=== PATIENT | male | born 1940 | race Caucasian/White ===

== ENCOUNTER 2017-09-22 18:27 | Inpatient (IN) | payer OTHER ==
[~2017-09-22] VITALS: Ht 175.3 cm; Wt 128.0 kg
[~2017-09-22 18:27] MED LIST: ATEN50 PO; Diovan320 MG PO; FINA5 PO; GLIP5 PO; NYST100TO TOP; Prozac20 MG PO
[2017-09-22 20:24] LABS: BASOPHILS ABSOLUTE AUTO 0.02 K/mm3 (0.00-0.23); BASOPHILS PERCENT AUTO 0 % (0-2); EOSINOPHILS ABSOLUTE AUTO 0.21 K/mm3 (0.00-0.68); EOSINOPHILS PERCENT AUTO 2 % (0-6); Hematocrit 42.1 % (37.0-53.0); Hemoglobin 14.1 g/dL (13.5-17.5); IMMATURE GRAN ABSOLUTE AUTO 0.03 K/mm3 (0.00-0.10); IMMATURE GRAN PERCENT AUTO 0 % (0-1); LYMPHOCYTES PERCENT AUTO 9 % (21-46); MONOCYTES PERCENT AUTO 6 % (4-13); Mean Corpuscular HGB 30.7 pg (26.0-34.0); Mean Corpuscular HGB Conc 33.5 g/dL (31.5-36.5); Mean Corpuscular Volume 92 fL (80-100); Mean Platelet Volume 11.3 fL (9.1-12.4); NEUTROPHILS ABSOLUTE AUTO 8.36 K/mm3 (1.96-9.15); NEUTROPHILS PERCENT AUTO 83 % (41-73); Platelet Count 154 K/mm3 (150-400); RDW Coefficient Variation 13.8 % (11.7-14.2); RDW Standard Deviation 45.5 fL (35.1-46.3); White Blood Cell Count 10.12 K/mm3 (4.00-11.30)
[2017-09-22 20:43] LABS: Albumin, Blood 3.4 g/dL (3.4-5.0); Albumin/Globulin Ratio 0.8 (0.8-1.8); Bilirubin, Total 0.4 mg/dL (0.1-1.0); Bun/Creatinine Ratio 22.2 (12.0-20.0); Creatinine, Blood 1.62 mg/dL (0.60-1.20); Globulin, Blood 4.5 g/dL (2.2-4.0); Potassium, Blood 4.1 mmol/L (3.5-5.5); Total Protein, Blood 7.9 g/dL (6.4-8.2); Troponin I 0.024 ng/mL (0.000-0.040)
[2017-09-22] MEDS ORDERED: ASPI81CH PO (20:43)
[2017-09-22] MEDS ORDERED: AMLO10 PO (20:43)
[2017-09-22] MEDS ORDERED: ATEN50 PO (20:43)
[2017-09-22] MEDS ORDERED: BUME2 PO (20:43)
[2017-09-22] MEDS ORDERED: DONE10 PO (20:44)
[2017-09-22] MEDS ORDERED: CETI5 PO (20:44)
[2017-09-22] MEDS ORDERED: FINA5 PO (20:44)
[2017-09-22] MEDS ORDERED: Hair, Skin & N1 EACH PO (20:45)
[2017-09-22] MEDS ORDERED: FISH OIL 1,0001 EAC1 PO (20:45)
[2017-09-22] MEDS ORDERED: POTCHL10ER PO (20:45)
[2017-09-22] MEDS ORDERED: NYST100000 PO (20:45)
[2017-09-22] MEDS ORDERED: Diovan160 MG PO (20:46)
[2017-09-22] MEDS ORDERED: Prozac40 MG PO (20:46)
[2017-09-22] MEDS ORDERED: TAMS.4ER PO (20:46)
[2017-09-22] MEDS ORDERED: GLIP5 PO (20:47)
[2017-09-22 23:20] LABS: International Normalized Ratio 1.07; Prothrombin Time Results 11.2 Sec (9.7-11.5)
[2017-09-22] MEDS ORDERED: NAMZARIC 28 MG1 EACH PO (23:24)
[2017-09-23 05:56] LABS: BASOPHILS ABSOLUTE AUTO 0.03 K/mm3 (0.00-0.23); BASOPHILS PERCENT AUTO 0 % (0-2); EOSINOPHILS PERCENT AUTO 3 % (0-6); Hematocrit 39.2 % (37.0-53.0); Hemoglobin 12.8 g/dL (13.5-17.5); IMMATURE GRAN ABSOLUTE AUTO 0.04 K/mm3 (0.00-0.10); IMMATURE GRAN PERCENT AUTO 1 % (0-1); LYMPHOCYTES ABSOLUTE AUTO 1.58 K/mm3 (0.84-5.20); LYMPHOCYTES PERCENT AUTO 18 % (21-46); MONOCYTES ABSOLUTE AUTO 0.66 K/mm3 (0.16-1.47); MONOCYTES PERCENT AUTO 8 % (4-13); Mean Corpuscular HGB 30.3 pg (26.0-34.0); Mean Corpuscular HGB Conc 32.7 g/dL (31.5-36.5); Mean Corpuscular Volume 93 fL (80-100); NEUTROPHILS ABSOLUTE AUTO 6.09 K/mm3 (1.96-9.15); NEUTROPHILS PERCENT AUTO 70 % (41-73); Platelet Count 143 K/mm3 (150-400); RDW Coefficient Variation 13.8 % (11.7-14.2); RDW Standard Deviation 46.9 fL (35.1-46.3); Red Blood Cell Count 4.22 M/mm3 (4.30-5.90)
[2017-09-23 06:29] LABS: Albumin/Globulin Ratio 0.7 (0.8-1.8); Bilirubin, Total 0.4 mg/dL (0.1-1.0); Bun/Creatinine Ratio 19.4 (12.0-20.0); Calcium, Blood 8.5 mg/dL (8.5-10.1); Creatinine, Blood 1.65 mg/dL (0.60-1.20); Globulin, Blood 4.1 g/dL (2.2-4.0); Potassium, Blood 3.7 mmol/L (3.5-5.5); Total Protein, Blood 7.1 g/dL (6.4-8.2)
[2017-09-23] MEDS ORDERED: NYSTRITC TOP (12:08)
[2017-09-23] MEDS ORDERED: GLIP2.5ER PO (12:30)
[2017-09-24 05:07] LABS: BASOPHILS ABSOLUTE AUTO 0.05 K/mm3 (0.00-0.23); BASOPHILS PERCENT AUTO 1 % (0-2); EOSINOPHILS ABSOLUTE AUTO 0.31 K/mm3 (0.00-0.68); EOSINOPHILS PERCENT AUTO 4 % (0-6); Hematocrit 39.4 % (37.0-53.0); Hemoglobin 12.9 g/dL (13.5-17.5); IMMATURE GRAN ABSOLUTE AUTO 0.02 K/mm3 (0.00-0.10); IMMATURE GRAN PERCENT AUTO 0 % (0-1); LYMPHOCYTES ABSOLUTE AUTO 1.34 K/mm3 (0.84-5.20); LYMPHOCYTES PERCENT AUTO 17 % (21-46); MONOCYTES ABSOLUTE AUTO 0.63 K/mm3 (0.16-1.47); MONOCYTES PERCENT AUTO 8 % (4-13); Mean Corpuscular HGB 30.4 pg (26.0-34.0); Mean Corpuscular HGB Conc 32.7 g/dL (31.5-36.5); Mean Corpuscular Volume 93 fL (80-100); Mean Platelet Volume 11.8 fL (9.1-12.4); NEUTROPHILS ABSOLUTE AUTO 5.45 K/mm3 (1.96-9.15); NEUTROPHILS PERCENT AUTO 70 % (41-73); Platelet Count 145 K/mm3 (150-400); RDW Coefficient Variation 13.7 % (11.7-14.2); Red Blood Cell Count 4.25 M/mm3 (4.30-5.90)
[2017-09-24 06:04] LABS: Bun/Creatinine Ratio 22.7 (12.0-20.0); Calcium, Blood 8.5 mg/dL (8.5-10.1); Creatinine, Blood 1.63 mg/dL (0.60-1.20); Potassium, Blood 3.8 mmol/L (3.5-5.5)
[2017-09-25 03:56] LABS: International Normalized Ratio 1.12; Prothrombin Time Results 11.7 Sec (9.7-11.5)
[2017-09-26 03:32] LABS: International Normalized Ratio 1.14; Prothrombin Time Results 11.9 Sec (9.7-11.5)
[2017-09-26] MEDS ORDERED: XARELTO15 MG PO (11:33)
[2018-07-29] MEDS ORDERED: ELIQUIS5 M1 PO (16:40)
[2018-07-29] MEDS ORDERED: ALLO100 PO (16:41)
[2018-07-29] MEDS ORDERED: METO50ER PO (16:42)
[2018-07-29] MEDS ORDERED: LOSA50 PO (16:42)
[2018-07-29] MEDS ORDERED: ADULT TUSS100 MG/5 M PO (22:20)
[2018-07-29] MEDS ORDERED: QUET25 PO (22:26)
[2018-07-29] MEDS ORDERED: LEVFLO500 PO (22:31)
[2018-07-29] MEDS ORDERED: ZYRTEC10 M2 PO (22:31)
[2018-07-30] MEDS ORDERED: LEVFLO500 PO (02:32)
== END 2017-09-26 13:30 | disposition home or self-care (01) | DRG 175 ==
LOC: ER 18:27 → ICUW 22:18 → PCU 22:18 → ICUW 22:58 → PCU 09-23 16:00
PROVIDERS: Emergency Medicine; Internal Medicine
DX: I26.99 Other pulmonary embolism without acute cor pulmonale (principal); J96.01 Acute respiratory failure with hypoxia; I82.532 Chronic embolism and thrombosis of left popliteal vein; G47.30 Sleep apnea, unspecified; E11.22 Type 2 diabetes mellitus with diabetic chronic kidney disease; I12.9 Hypertensive chronic kidney disease with stage 1 through stage 4 chronic kidney disease, or unspecified chronic kidney disease; N18.9 Chronic kidney disease, unspecified; F03.90 Unspecified dementia, unspecified severity, without behavioral disturbance, psychotic disturbance, mood disturbance, and anxiety; Z79.82 Long term (current) use of aspirin; Z79.899 Other long term (current) drug therapy; Z88.0 Allergy status to penicillin; Z88.8 Allergy status to other drugs, medicaments and biological substances; Z91.040 Latex allergy status
CPT/HCPCS: 36415; 71046; 78582; 80048; 80053; 82947; 83880; 84484; 85025; 85610; 85730; 93005; 93010; 93970; 94660; 94762; 96374; 99285; A9540; A9558; J1644; J1650; J1940; J7060

== ENCOUNTER → 2018-11-12 | Outpatient (CLI) | payer OTHER ==
[~2018-11-12] MED LIST changes: +ADULT TUSS100 MG/5 M PO; +ALLO100 PO; +AMLO10 PO; +ASPI81CH PO; +BUME2 PO; +CETI5 PO; +DONE10 PO; +Diovan160 MG PO; +ELIQUIS5 M1 PO; +FISH OIL 1,0001 EAC1 PO; +GLIP2.5ER PO; +Hair, Skin & N1 EACH PO; +LEVFLO500 PO; +LOSA50 PO; +METO50ER PO; +NAMZARIC 28 MG1 EACH PO; +NYST100000 PO; +NYSTRITC TOP; +POTCHL10ER PO; +Prozac40 MG PO; +QUET25 PO; +TAMS.4ER PO; +XARELTO15 MG PO; +ZYRTEC10 M2 PO
== END ==
LOC: LAB 17:14 → LAB SHORT 17:14
DX: N39.41 Urge incontinence (principal)
CPT/HCPCS: 87086

== ENCOUNTER 2019-11-25 13:04 | Inpatient (IN) | payer OTHER ==
[~2019-11-25] VITALS: Ht 175.3 cm; Wt 99.8 kg
[~2019-11-25 13:04] MED LIST changes: -BUME2 PO; +Bumetanide2 MG PO; -FISH OIL 1,0001 EAC1 PO; +FLUO10 PO; +Fish Oil Conc1000 MG PO; -Prozac40 MG PO
[2019-11-25] MEDS ORDERED: Bactrim Ds Tab1 EACH PO (13:19)
[2019-11-25 13:51] LABS: BASOPHILS ABSOLUTE AUTO 0.06 K/mm3 (0.00-0.23); BASOPHILS PERCENT AUTO 1 % (0-2); EOSINOPHILS ABSOLUTE AUTO 0.23 K/mm3 (0.00-0.68); EOSINOPHILS PERCENT AUTO 3 % (0-6); Hematocrit 47.8 % (37.0-53.0); Hemoglobin 15.3 g/dL (13.5-17.5); IMMATURE GRAN ABSOLUTE AUTO 0.03 K/mm3 (0.00-0.10); IMMATURE GRAN PERCENT AUTO 0 % (0-1); LYMPHOCYTES ABSOLUTE AUTO 1.37 K/mm3 (0.84-5.20); LYMPHOCYTES PERCENT AUTO 17 % (21-46); MONOCYTES ABSOLUTE AUTO 0.38 K/mm3 (0.16-1.47); MONOCYTES PERCENT AUTO 5 % (4-13); Mean Corpuscular HGB 30.4 pg (26.0-34.0); Mean Corpuscular Volume 95 fL (80-100); Mean Platelet Volume 11.8 fL (9.1-12.4); NEUTROPHILS ABSOLUTE AUTO 6.12 K/mm3 (1.96-9.15); NEUTROPHILS PERCENT AUTO 75 % (41-73); Platelet Count 182 K/mm3 (150-400); RDW Coefficient Variation 14.6 % (11.7-14.2); RDW Standard Deviation 51.1 fL (35.1-46.3); Red Blood Cell Count 5.04 M/mm3 (4.30-5.90); White Blood Cell Count 8.19 K/mm3 (4.00-11.30)
[2019-11-25 14:07] LABS: International Normalized Ratio 1.05; Prothrombin Time Results 11.2 Sec (9.7-11.5)
[2019-11-25 14:29] LABS: Albumin, Blood 3.6 g/dL (3.4-5.0); Albumin/Globulin Ratio 0.8 (0.8-1.8); Bilirubin, Total 0.3 mg/dL (0.1-1.0); Bun/Creatinine Ratio 11.1 (12.0-20.0); Calcium, Blood 9.4 mg/dL (8.5-10.1); Creatinine, Blood 2.16 mg/dL (0.60-1.20); Globulin, Blood 4.5 g/dL (2.2-4.0); Potassium, Blood 3.9 mmol/L (3.5-5.5); Total Protein, Blood 8.1 g/dL (6.4-8.2)
[2019-11-25 16:21] LABS: Source, Urine Clean Catch
[2019-11-25 16:29] LABS: Bilirubin, Urine Neg (Neg); Blood, Urine 5+ (Neg); Glucose Qualitative, Urine Neg (Neg); Ketones, Urine Neg (Neg); Leukocyte Esterase, Urine 3+ (Neg); Nitrite, Urine Neg (Neg); Protein, Urine 2+ (Neg); Urobilinogen, Urine NORM (Normal)
[2019-11-25 16:41] LABS: Appearance, Urine Hazy (Clear); Color, Urine Yellow (P-Yellow)
[2019-11-25 16:42] LABS: White Blood Cells, Urine TNTC /hpf (0-5)
[2019-11-25 16:43] LABS: Bacteria Few /hpf; Squamous Epithelial Cells Few /hpf (Few)
[2019-11-25] MEDS ORDERED: RIVASTIGMINE3 MG PO (18:35)
--- NOTE | 2019-11-26 03:42 | NUR ---
SARAH CATH D/C'D. PT KATIE WELL. BRIEF IN PLACE D/T INCONTINENCE.
--- NOTE | 2019-11-26 05:13 | NUR ---
SHIFT SUMMARY: VSS. AFEB. A/O TO SELF ONLY. PT UNABLE TO STATE WHERE HE IS OR WHY HIS IS IN THE HOSPITAL. UNABLE TO GIVE BIRTHDAY CORRECTLY. INCREASED CONFUSION DURING THE NIGHT. REMAINS PLEASANT, CHUCKLING AND SMILING OFTEN. URINE YELLOW W/LARGE AMTS OF WHITE SEDIMENT. DENIES DYSURIA. DENIES ABD OR FLANK PAIN. IV FLUIDS CONTINUOUSLY ORDERED. PT DANGLING LEGS OUT OF BED AT ONE POINT DUE TO ATTMEPT TO GET OOB. WHEN ASKED, PT UNABLE TO EXPLAIN WHERE HE WAS GOING. AGAIN, VERY CONFUSED ABOUT SITUATION, BUT PLEASANT AND REDIRECTABLE. ASSISTED BACK IN BED. CALL BUTTON EXPLAINED AND PLACED IN REACH, BED LOW, BED ALARM REMAINS ON. WILL CONT TO MONITOR.
[2019-11-26 05:15] LABS: BASOPHILS ABSOLUTE AUTO 0.06 K/mm3 (0.00-0.23); BASOPHILS PERCENT AUTO 1 % (0-2); EOSINOPHILS ABSOLUTE AUTO 0.29 K/mm3 (0.00-0.68); EOSINOPHILS PERCENT AUTO 4 % (0-6); Hematocrit 43.3 % (37.0-53.0); IMMATURE GRAN ABSOLUTE AUTO 0.03 K/mm3 (0.00-0.10); IMMATURE GRAN PERCENT AUTO 0 % (0-1); LYMPHOCYTES ABSOLUTE AUTO 1.48 K/mm3 (0.84-5.20); LYMPHOCYTES PERCENT AUTO 18 % (21-46); MONOCYTES ABSOLUTE AUTO 0.55 K/mm3 (0.16-1.47); MONOCYTES PERCENT AUTO 7 % (4-13); Mean Corpuscular HGB 30.5 pg (26.0-34.0); Mean Corpuscular HGB Conc 32.3 g/dL (31.5-36.5); Mean Corpuscular Volume 94 fL (80-100); Mean Platelet Volume 11.5 fL (9.1-12.4); NEUTROPHILS PERCENT AUTO 71 % (41-73); Platelet Count 158 K/mm3 (150-400); RDW Coefficient Variation 14.6 % (11.7-14.2); Red Blood Cell Count 4.59 M/mm3 (4.30-5.90); White Blood Cell Count 8.21 K/mm3 (4.00-11.30)
[2019-11-26 05:35] LABS: Bun/Creatinine Ratio 12.4 (12.0-20.0); Calcium, Blood 8.8 mg/dL (8.5-10.1); Creatinine, Blood 2.09 mg/dL (0.60-1.20); Magnesium, Blood 2.3 mg/dL (1.6-2.4); Potassium, Blood 4.1 mmol/L (3.5-5.5)
--- NOTE | 2019-11-26 17:01 | NUR ---
PATIENT IS ALERT. ORIENTED ONLY TO SELF. AT THIS TIME HE IS VERY CONFUSED AND TRYING TO GET OUT OF THE RECLINER. HE IS EASILY REDIRECTABLE. DOES NOT SHOW ANY AGRESSION. HE IS A 2PA WITH FWW AND GAIT BELT. INCONTINENT OF URINE, ATTENDS IN PLACE. WILL CONTINUE TO MONITOR.
--- NOTE | 2019-11-27 04:02 | NUR ---
SHIFT SUMMARY ADMITTED FOR ACUTE METABOLIC ENCEPHALOPATHY. DNR CODE. PT IS CONFUSED BUT ABLE CALL OUT. CPAP @ NIGHT, ADA DIET, CONTINUOUS PULSE OX, BED ALARM IS ON, ACHS GLUCOSE MONITORING. HE COMES FROM [facility] WHERE HE ALREADY HAS A CAREGIVER IN PLACE. 2 PERSON ASSIST W/FWW AND GAITBELT. HE IS INCONTINENT. HX: ABDULAZIZ, DEMENTIA, CARA'S ESOPHAGUS, PE, CHF, CKD3, GOUT, FALLS AT HOME.
[2019-11-27 06:24] LABS: Bun/Creatinine Ratio 13.7 (12.0-20.0); Creatinine, Blood 2.05 mg/dL (0.60-1.20); Potassium, Blood 4.2 mmol/L (3.5-5.5)
--- NOTE | 2019-11-27 14:01 | NUR ---
DISCHARGE SUMMARY PT A/O X 1-2. UNABLE TO EFFECTIVELY MAKE NEEDS KNOWN. PT STABLE ON FEET BUT CONFUSED. IV REMOVED AND CAREGIVER PROVIDED ALL D/C PAPERWORK AND INSTRUCTIONS. PATIENT WHEELED OUT OF HOSPITAL BY NODE JS DEVELOPER AND CAREGIVER.
== END 2019-11-27 13:44 | disposition home or self-care (01) | DRG 682 ==
LOC: ER 13:04 → ERHOLD 18:01 → MEDS 18:01 → ENPENDDIS 11-27 11:00 → MEDS 11-27 13:44
PROVIDERS: Hospitalist; Physician Assistant; ADMIT Internal Medicine
DX: N17.9 Acute kidney failure, unspecified (principal); G93.41 Metabolic encephalopathy; N18.3 Chronic kidney disease, stage 3 (moderate); F03.90 Unspecified dementia, unspecified severity, without behavioral disturbance, psychotic disturbance, mood disturbance, and anxiety; M10.9 Gout, unspecified; G47.33 Obstructive sleep apnea (adult) (pediatric); I12.9 Hypertensive chronic kidney disease with stage 1 through stage 4 chronic kidney disease, or unspecified chronic kidney disease; I25.10 Atherosclerotic heart disease of native coronary artery without angina pectoris; K22.70 Barrett's esophagus without dysplasia; J45.909 Unspecified asthma, uncomplicated; N40.0 Benign prostatic hyperplasia without lower urinary tract symptoms; E66.01 Morbid (severe) obesity due to excess calories; Z68.32 Body mass index [BMI] 32.0-32.9, adult; Z66 Do not resuscitate; E86.0 Dehydration
CPT/HCPCS: 36415; 51702; 70450; 80048; 80053; 81001; 82947; 83735; 84484; 85025; 85610; 87086; 93005; 93010; 94660; 94762; 96365-59; 97116; 97162; 97166; 97535; 99285-25; A9270-GY; J0696; J7030; J7050

== ENCOUNTER → 2020-01-13 | Outpatient (CLI) | payer OTHER ==
[~2020-01-13] MED LIST changes: +Bactrim Ds Tab1 EACH PO; +RIVASTIGMINE3 MG PO
== END | disposition home or self-care (01) ==
LOC: LAB 17:17 → LAB SHORT 17:17
DX: R35.0 Frequency of micturition (principal)
CPT/HCPCS: 87086

== ENCOUNTER 2020-10-13 14:04 | Observation (INO) | payer OTHER ==
[~2020-10-13] VITALS: Ht 182.9 cm; Wt 104.3 kg
[~2020-10-13 14:04] MED LIST changes: +FISH OIL 1,2001 EAC7 PO; -Fish Oil Conc1000 MG PO
[2020-10-13 14:58] LABS: BASOPHILS ABSOLUTE AUTO 0.06 K/mm3 (0.00-0.23); BASOPHILS PERCENT AUTO 1 % (0-2); EOSINOPHILS ABSOLUTE AUTO 0.32 K/mm3 (0.00-0.68); EOSINOPHILS PERCENT AUTO 4 % (0-6); Hematocrit 48.4 % (37.0-53.0); Hemoglobin 15.2 g/dL (13.5-17.5); IMMATURE GRAN ABSOLUTE AUTO 0.04 K/mm3 (0.00-0.10); IMMATURE GRAN PERCENT AUTO 0 % (0-1); LYMPHOCYTES ABSOLUTE AUTO 1.01 K/mm3 (0.84-5.20); LYMPHOCYTES PERCENT AUTO 11 % (21-46); MONOCYTES ABSOLUTE AUTO 0.38 K/mm3 (0.16-1.47); MONOCYTES PERCENT AUTO 4 % (4-13); Mean Corpuscular HGB 29.6 pg (26.0-34.0); Mean Corpuscular HGB Conc 31.4 g/dL (31.5-36.5); Mean Corpuscular Volume 94 fL (80-100); Mean Platelet Volume 12.6 fL (9.1-12.4); NEUTROPHILS ABSOLUTE AUTO 7.27 K/mm3 (1.96-9.15); NEUTROPHILS PERCENT AUTO 80 % (41-73); Platelet Count 130 K/mm3 (150-400); RDW Coefficient Variation 14.7 % (11.7-14.2); RDW Standard Deviation 51.4 fL (35.1-46.3); Red Blood Cell Count 5.14 M/mm3 (4.30-5.90); White Blood Cell Count 9.08 K/mm3 (4.00-11.30)
[2020-10-13 15:16] LABS: Albumin/Globulin Ratio 0.7 (0.8-1.8); Bilirubin, Total 0.6 mg/dL (0.1-1.0); Bun/Creatinine Ratio 15.3 (12.0-20.0); Calcium, Blood 8.8 mg/dL (8.5-10.1); Creatinine, Blood 1.77 mg/dL (0.60-1.20); Globulin, Blood 4.4 g/dL (2.2-4.0); Potassium, Blood 3.6 mmol/L (3.5-5.5); Total Protein, Blood 7.4 g/dL (6.4-8.2); Troponin I 0.059 ng/mL (0.000-0.040)
[2020-10-13 17:29] LABS: Source, Urine Clean Catch
[2020-10-13 17:39] LABS: Appearance, Urine Clear (Clear); Bilirubin, Urine Neg (Neg); Blood, Urine Neg (Neg); Color, Urine Yellow (P-Yellow); Glucose Qualitative, Urine Neg (Neg); Ketones, Urine 1+ (Neg); Leukocyte Esterase, Urine Neg (Neg); Nitrite, Urine Neg (Neg); Protein, Urine 2+ (Neg); Urobilinogen, Urine NORM (Normal)
[2020-10-13 17:46] LABS: Red Blood Cells, Urine 0-2 /hpf (0-2); White Blood Cells, Urine Not Seen /hpf (0-5)
[2020-10-13 17:47] LABS: Amorphous Light (0-Heavy); Bacteria Not Seen /hpf; Squamous Epithelial Cells Few /hpf (Few)
[2020-10-13] MEDS ORDERED: ELIQUIS2.5 MG PO (17:47)
[2020-10-13 17:51] LABS: U Amphetamine Screen Not Detected; U Barbituate Screen Not Detected; U Benzodiazapine Screen Not Detected; U Buprenorphine Screen Not Detected; U Cannabinoids Screen Not Detected; U Cocaine Screen Not Detected; U Methadone Screen Not Detected; U Methamphetamine Screen Not Detected; U Opiates Screen Not Detected; U Oxycodone Screen Not Detected; U Phencyclidine Screen Not Detected; U Propoxyphene Screen Not Detected
[2020-10-13] MEDS ORDERED: LACT PO (17:55)
[2020-10-13] MEDS ORDERED: LOSA50 PO (17:58)
[2020-10-13] MEDS ORDERED: NAMZARIC PO (18:01)
--- NOTE | 2020-10-13 21:41 | NUR ---
ADMIT NOTE RECEIVED HANDOFF FROM ER NURSE RICHARD. PT BROUGHT TO FLOOR VIA GURNEY. TELEMETRY MONITORING BEGAN ORDERED. PT ORIENTED TO UNIT. CALL BUTTON WITHIN REACH.
--- NOTE | 2020-10-14 04:20 | NUR ---
SHIFT SUMMARY ADMITTED FOR ELEVATED TROPONIN. DNR CODE. PLAN IS TO TREND TROPONINS. PT HAS HX FOR MULTIPLE FALLS. HE IS CONFUSED. HIGH FALL RISK. TELEMETRY: AFIB @ 82 BPM. HE IS VERY [place]. A SARAH IS IN PLACE AND PATENT. CALL BUTTON IS WITHIN REACH. BED ALARM IS ON.
--- NOTE | 2020-10-14 14:33 | NUR ---
PT HAD SMALL RUN OF V TACH 11 BEATS @ 1150. ANESTHETIST ALSO NOTICE A LOT OF PVCs WITH BIGEMINY AND TRIGEMINY. DR CHU WAS NOTIFIED AND HE ADDED MEDICATION TO EMAR.
--- NOTE | 2020-10-14 17:56 | NUR ---
PT AOX1 AND CONFUSED PT SEEMS TO BE COOPERATIVE. PT DOES NOT CALL WITH CALL LIGHT AND HAS BEEN IN BED MOST OF THE DAY. PT WORKED WITH PHYSICAL THERAPY, BUT WAS HARD TO REDIRECT PER PHYSICAL THERAPIST. PT DENIES ANY PAIN AND HAS CALL LIGHT WITHIN REACH. WILL CONTINUE TO MONITOR.
--- NOTE | 2020-10-15 04:16 | NUR ---
FILL MANAGER SUMMARY PT A/O X0. PLEASANTLY CONFUSED. SLEPT MOST OF THE NIGHT. DENIES PAIN. VSS. NO ACUTE CHANGES. TELE SR AT 66 PER GUN REPAIR CLERK THIS MORNING. BED ALARM IN PLACE, CALL LIGHT WITHIN REACH.
--- NOTE | 2020-10-15 17:03 | NUR ---
PT AOX1 AND COOPERATIVE OF CARE. PT HAS BEEN VERY TIRED TODAY, BUT WILL WAKE UP PT DID NOT WANT TO EAT BREAKFAST OR LUNCH. PT HAD SARAH REMOVED AROUND 1415 TODAY WILL CONTINUE TO MONITOR FOR VOIDS. PT RESTING AT THIS TIME WAS ABLE TO GET PT TO DRINK SOME ENSURE. WILL CONTINUE TO ENCOURGE DRINKING AND EATING. CALL LIGHT IS WITHIN REACH AND BED ALARM IN PLACE. WILL CONTINUE TO MONITOR.
--- NOTE | 2020-10-16 05:30 | NUR ---
10/16/20 0525 PT AWAKE AND CHEERFUL. DENIES ANY S/S OR DISCOMFORT. TAKING JUICE WELL. VOIDED TWICE. HEART MONITOR AND VITALS STABLE. UNEVENTFUL NIGHT.
[2020-10-16] MEDS ORDERED: CARV6.25 PO (11:19)
--- NOTE | 2020-10-16 13:59 | NUR ---
PT DISCHARGED TODAY WITH CAREGIVER TRANSPORT HOME WITH PERSONAL WHEELCHAIR. PT IS AT BASELINE AND HAS BEEN DOING WELL TODAY. DR ANTONIO IS VERY FAMILLIAR WITH PT AND HIS HX. PT HAD ALL PERSONAL BELONING COLLECTED AND PAPERWORK AND EDUCATIONAL MATERIAL REVIEWED WITH CAREGIVER. CAREGIVER AND PT'S DAUGHTER ARE WORKING ON PLAN FOR MORE CARE OR SUPERVISION AT NIGHT. PT WAS TAKEN OUT IN WHEELCHAIR BY CAREGIVER NO DISTRESS NOTED.
[2020-10-19 07:10] LABS: TRICYCLIC ANTIDEP Negative ng/mL (Cutoff=100)
[2021-01-22] MEDS ORDERED: CEFPODOXIME PR100 MG PO (21:24)
== END 2020-10-16 13:32 | disposition home or self-care (01) ==
LOC: ER 14:04 → MEDS 14:05 → ENPENDDIS 10-16 11:02 → MEDS 10-16 13:32
PROVIDERS: Emergency Medicine; ADMIT Internal Medicine
DX: R77.8 Other specified abnormalities of plasma proteins (principal); G93.41 Metabolic encephalopathy; F03.90 Unspecified dementia, unspecified severity, without behavioral disturbance, psychotic disturbance, mood disturbance, and anxiety; E78.5 Hyperlipidemia, unspecified; J44.9 Chronic obstructive pulmonary disease, unspecified; K21.9 Gastro-esophageal reflux disease without esophagitis; N40.0 Benign prostatic hyperplasia without lower urinary tract symptoms; M19.90 Unspecified osteoarthritis, unspecified site; I26.99 Other pulmonary embolism without acute cor pulmonale; E11.22 Type 2 diabetes mellitus with diabetic chronic kidney disease; I12.9 Hypertensive chronic kidney disease with stage 1 through stage 4 chronic kidney disease, or unspecified chronic kidney disease; N18.30 Chronic kidney disease, stage 3 unspecified; E66.01 Morbid (severe) obesity due to excess calories; I82.509 Chronic embolism and thrombosis of unspecified deep veins of unspecified lower extremity; R29.6 Repeated falls; Z79.01 Long term (current) use of anticoagulants; Z66 Do not resuscitate; Z87.891 Personal history of nicotine dependence; Z88.0 Allergy status to penicillin; Z88.8 Allergy status to other drugs, medicaments and biological substances
CPT/HCPCS: 36415; 51702; 70450; 71045; 72125; 80053; 81001; 83735; 83880; 84484; 85025; 93005; 93010; 97162; 97530; 99285-25; A9270; G0378; G0480; G0481; J7120

== ENCOUNTER 2020-11-26 13:07 | Emergency (ER) | payer OTHER ==
[~2020-11-26] VITALS: Ht 175.3 cm; Wt 136.1 kg
[~2020-11-26 13:07] MED LIST changes: +CARV6.25 PO; +ELIQUIS2.5 MG PO; +LACT PO; +NAMZARIC PO
[2020-11-26 16:17] LABS: BASOPHILS ABSOLUTE AUTO 0.05 K/mm3 (0.00-0.23); BASOPHILS PERCENT AUTO 0 % (0-2); EOSINOPHILS PERCENT AUTO 0 % (0-6); Hematocrit 51.7 % (37.0-53.0); Hemoglobin 16.8 g/dL (13.5-17.5); IMMATURE GRAN ABSOLUTE AUTO 0.15 K/mm3 (0.00-0.10); IMMATURE GRAN PERCENT AUTO 1 % (0-1); LYMPHOCYTES ABSOLUTE AUTO 1.01 K/mm3 (0.84-5.20); LYMPHOCYTES PERCENT AUTO 5 % (21-46); MONOCYTES ABSOLUTE AUTO 1.13 K/mm3 (0.16-1.47); MONOCYTES PERCENT AUTO 6 % (4-13); Mean Corpuscular HGB 30.1 pg (26.0-34.0); Mean Corpuscular HGB Conc 32.5 g/dL (31.5-36.5); Mean Corpuscular Volume 93 fL (80-100); Mean Platelet Volume 11.7 fL (9.1-12.4); NEUTROPHILS ABSOLUTE AUTO 17.78 K/mm3 (1.96-9.15); NEUTROPHILS PERCENT AUTO 89 % (41-73); Platelet Count 207 K/mm3 (150-400); RDW Coefficient Variation 14.2 % (11.7-14.2); RDW Standard Deviation 48.9 fL (35.1-46.3); Red Blood Cell Count 5.58 M/mm3 (4.30-5.90); White Blood Cell Count 20.12 K/mm3 (4.00-11.30)
[2020-11-26 16:30] LABS: Albumin, Blood 3.2 g/dL (3.4-5.0); Albumin/Globulin Ratio 0.6 (0.8-1.8); Bilirubin, Total 1.1 mg/dL (0.1-1.0); Bun/Creatinine Ratio 11.8 (12.0-20.0); Calcium, Blood 9.2 mg/dL (8.5-10.1); Creatinine, Blood 1.69 mg/dL (0.60-1.20); Globulin, Blood 5.4 g/dL (2.2-4.0); Potassium, Blood 4.5 mmol/L (3.5-5.5); Total Protein, Blood 8.6 g/dL (6.4-8.2)
[2020-11-26 17:32] LABS: Source, Urine Voided
[2020-11-26 17:41] LABS: Appearance, Urine Hazy (Clear); Bilirubin, Urine Neg (Neg); Blood, Urine 2+ (Neg); Color, Urine Yellow (P-Yellow); Glucose Qualitative, Urine Neg (Neg); Ketones, Urine Neg (Neg); Leukocyte Esterase, Urine 3+ (Neg); Nitrite, Urine Neg (Neg); Protein, Urine 3+ (Neg); Urobilinogen, Urine NORM (Normal); pH, Urine 6.5 (5.0-8.0)
[2020-11-26 17:54] LABS: Bacteria Few /hpf; Squamous Epithelial Cells Few /hpf (Few)
[2020-11-26 17:56] LABS: Hyaline Casts 0-2 /lpf (0-2); White Blood Cells, Urine 25-50 /hpf (0-5); Yeast/Fungi Urine Mod /hpf
[2020-11-26] MEDS ORDERED: CEFP200 PO (18:46)
[2021-01-22] MEDS ORDERED: CEFPODOXIME PR100 MG PO (21:24)
== END 2020-11-26 19:53 | disposition home or self-care (01) ==
LOC: ER 13:07
PROVIDERS: Emergency Medicine
DX: A41.9 Sepsis, unspecified organism (principal); N39.0 Urinary tract infection, site not specified; J18.9 Pneumonia, unspecified organism; G93.40 Encephalopathy, unspecified; R09.02 Hypoxemia; Z88.0 Allergy status to penicillin; Z88.8 Allergy status to other drugs, medicaments and biological substances; Z79.01 Long term (current) use of anticoagulants; Z79.899 Other long term (current) drug therapy
CPT/HCPCS: 36415; 51701; 80053; 81001; 85025; 87086; 96365-59; 99283-25; J0696

== ENCOUNTER 2020-11-26 21:13 | Inpatient (IN) | payer OTHER ==
[~2020-11-26] VITALS: Ht 188 cm; Wt 131.2 kg
[~2020-11-26 21:13] MED LIST changes: +CEFP200 PO
[2020-11-26 22:56] LABS: Influenza A, PCR NEGATIVE (NEGATIVE); Influenza B, PCR NEGATIVE (NEGATIVE); Resp Syncytial Virus, PCR NEGATIVE (NEGATIVE); SARS-Cov-2 (COVID-19) PCR, MMC NEGATIVE (NEGATIVE)
[2020-11-27 01:44] LABS: BASOPHILS ABSOLUTE AUTO 0.04 K/mm3 (0.00-0.23); BASOPHILS PERCENT AUTO 0 % (0-2); EOSINOPHILS PERCENT AUTO 0 % (0-6); Hematocrit 44.3 % (37.0-53.0); Hemoglobin 14.3 g/dL (13.5-17.5); IMMATURE GRAN ABSOLUTE AUTO 0.16 K/mm3 (0.00-0.10); IMMATURE GRAN PERCENT AUTO 1 % (0-1); LYMPHOCYTES ABSOLUTE AUTO 1.02 K/mm3 (0.84-5.20); LYMPHOCYTES PERCENT AUTO 5 % (21-46); MONOCYTES ABSOLUTE AUTO 1.17 K/mm3 (0.16-1.47); MONOCYTES PERCENT AUTO 5 % (4-13); Mean Corpuscular HGB 30.2 pg (26.0-34.0); Mean Corpuscular HGB Conc 32.3 g/dL (31.5-36.5); Mean Corpuscular Volume 94 fL (80-100); NEUTROPHILS PERCENT AUTO 89 % (41-73); Platelet Count 167 K/mm3 (150-400); RDW Coefficient Variation 14.2 % (11.7-14.2); Red Blood Cell Count 4.74 M/mm3 (4.30-5.90); White Blood Cell Count 22.69 K/mm3 (4.00-11.30)
[2020-11-27 02:02] LABS: Albumin, Blood 2.5 g/dL (3.4-5.0); Albumin/Globulin Ratio 0.6 (0.8-1.8); Bilirubin, Total 0.7 mg/dL (0.1-1.0); Bun/Creatinine Ratio 15.2 (12.0-20.0); Calcium, Blood 8.5 mg/dL (8.5-10.1); Creatinine, Blood 1.71 mg/dL (0.60-1.20); Globulin, Blood 4.3 g/dL (2.2-4.0); Potassium, Blood 4.1 mmol/L (3.5-5.5); Total Protein, Blood 6.8 g/dL (6.4-8.2)
--- NOTE | 2020-11-27 04:17 | NUR ---
DIRECTOR OF PHYSIOTHERAPY SERVICES SUMMARY PT ADMITTED FROM ED AT 0050 THIS SHIFT, RECEIVED REPORT FROM KULWINDER CHU. PT A&O TO SELF, MILDLY SOMNOLENT, BUT IS EASILY AROUSED. PT CONFUSED AND VERY WEAK TO ANSWER QUESTIONS DURING ASSESSMENT. PLEASANT AND COOPERATIVE WITH CARE. PT 2P MAX ASSIST W/ BED MOBILITY AND TRANSFERS. PT INCONTINENT, ATTENDS IN PLACE. PT CALM AND RESTED IN BED AT THIS TIME. BED AT LOWEST POSITION W/ ALARM ON, CALL LIGHT WITHIN REACH.
--- NOTE | 2020-11-27 17:22 | NUR ---
PATIENT IS ALERT, HE IS ORIENTED TO SELF AND FOLLOWING DIRECTIONS AND AT TIMES HE KNOWS HE IS AT THE HOSPITAL. THE PATIENT HAS SLEPT IN BED MOST OF THE DAY. HE HAS A POOR APPETITE. HE TOLERATED THIN LIQUIDS WELL. HE IS INCONTINENT OF BOWEL AND BLADDER. THE PATIENTS PODIATRIC AIDE CAREGIVER CALLED TODAY AND SAID THE FAMILY WOULD LIKE HIM TO COME HOME LONG HE CAN AMBULATE SAFELY. THE PATIENT HAS A CAREGIVER 5 DAYS A WEEK. WILL CONTINUE TO MONITOR
--- NOTE | 2020-11-28 04:32 | NUR ---
SHIFT SUMMARY ASSUMED CARE OF PT AT 1900. PT IS A/OX2. HEART SOUNDS REGULAR, LUNG SOUNDS CLEAR. PT ON 2L NC BUT PT WILL RUB OFF DURING HIS SLEEP. PT IS INCONTIENT OF BOWEL AND BLADDER. BUTTOCK AND TRISTAN AREA IS REDDENED. NO ACUTE EVENTS DURING THE NIGHT. PT SLEPT T/O THE NIGHT. CALL LIGHT IN REACH, BED IN LOWEST POSTION.
[2020-11-28 04:47] LABS: Bicarbonate Venous 28.1 mmol/L (24.0-30.0); PO2 Venous 35.5 mmHg (38-42); pH Blood Venous 7.41 (7.34-7.37)
[2020-11-28 04:54] LABS: BASOPHILS ABSOLUTE AUTO 0.05 K/mm3 (0.00-0.23); BASOPHILS PERCENT AUTO 0 % (0-2); EOSINOPHILS PERCENT AUTO 0 % (0-6); Hematocrit 42.3 % (37.0-53.0); Hemoglobin 13.9 g/dL (13.5-17.5); IMMATURE GRAN ABSOLUTE AUTO 0.15 K/mm3 (0.00-0.10); IMMATURE GRAN PERCENT AUTO 1 % (0-1); LYMPHOCYTES PERCENT AUTO 5 % (21-46); MONOCYTES ABSOLUTE AUTO 1.15 K/mm3 (0.16-1.47); MONOCYTES PERCENT AUTO 5 % (4-13); Mean Corpuscular HGB 30.7 pg (26.0-34.0); Mean Corpuscular HGB Conc 32.9 g/dL (31.5-36.5); Mean Corpuscular Volume 93 fL (80-100); Mean Platelet Volume 12.3 fL (9.1-12.4); NEUTROPHILS ABSOLUTE AUTO 21.15 K/mm3 (1.96-9.15); NEUTROPHILS PERCENT AUTO 90 % (41-73); Platelet Count 167 K/mm3 (150-400); RDW Coefficient Variation 14.7 % (11.7-14.2); RDW Standard Deviation 50.7 fL (35.1-46.3); Red Blood Cell Count 4.53 M/mm3 (4.30-5.90)
[2020-11-28 05:12] LABS: Bun/Creatinine Ratio 17.4 (12.0-20.0); Calcium, Blood 8.5 mg/dL (8.5-10.1); Creatinine, Blood 1.84 mg/dL (0.60-1.20); Potassium, Blood 3.9 mmol/L (3.5-5.5)
--- NOTE | 2020-11-28 16:01 | NUR ---
SHIFT SUMMARY PATIENT DENIES PAIN, NAUSEA, AND SHORTNESS OF BREATH. PATIENT EATING AND DRINKING WELL. PATIENT UP ON SIDE OF BED WITH ASSIST TODAY. PLEASANTLY CONFUSED. 3L/NC TO MAINTAIN OXYGEN SATURATION ABOVE 92%. REQUIRES FREQUENT REMINDERS TO LEAVE NASAL CANULA ON.
--- NOTE | 2020-11-28 21:28 | NUR ---
CALLED DRESSING ROOM ATTENDANT PATIENT PULLED IV OUT. THIS PT MAY DC HOME TOMORROW. HE IS CONFUSED @ BASELINE, BUT DOES FOLLOW INSTRUCTION. HE TAKES PO MEDS AND PO ANTIBIOTICS. I INFORMED THE DRESSING ROOM ATTENDANT THAT HE PULLED OUT HIS IV. SHE INSTRUCTED ME TO LEAVE THE IV OUT FOR THIS SHIFT AND LET THE DAY HOSPITALIST DECIDE IF AN IV IS NEEDED.
--- NOTE | 2020-11-29 06:00 | NUR ---
HARDCOPY SHIFT SUMMARY IN PT CHART - DOWNTIME
[2020-11-29 08:50] LABS: Hematocrit 41.3 % (37.0-53.0); Hemoglobin 13.9 g/dL (13.5-17.5); Mean Corpuscular HGB 30.8 pg (26.0-34.0); Mean Corpuscular HGB Conc 33.7 g/dL (31.5-36.5); Mean Corpuscular Volume 91 fL (80-100); Mean Platelet Volume 12.4 fL (9.1-12.4); Platelet Count 193 K/mm3 (150-400); RDW Coefficient Variation 14.6 % (11.7-14.2); RDW Standard Deviation 48.9 fL (35.1-46.3); Red Blood Cell Count 4.52 M/mm3 (4.30-5.90); White Blood Cell Count 19.58 K/mm3 (4.00-11.30)
[2020-11-29 09:07] LABS: Bun/Creatinine Ratio 21.7 (12.0-20.0); Calcium, Blood 8.3 mg/dL (8.5-10.1); Creatinine, Blood 1.61 mg/dL (0.60-1.20)
--- NOTE | 2020-11-29 13:21 | NUR ---
PT NOT WANTING TO WAKE UP AND WORK WITH PT OR OT. SPOKE WITH DAUGHTER EARLIER WHO REPORTS PT IS ABLE TO AMBULATE SHORT DISTANCES AND HANGS OUT IN THE CHAIR MOST OF THE TIME AND NEEDS ENCOURAGEMENT. SHE REPORTS HE HAS A CAREGIVER SUN-WED FROM AM TO EVENING AND THEN MON/TUES THERE TO ASSIST WITH MEDS AND GET DRESSED FOR THE DAY. DAUGHTER REPORTS THEY HAVE A NANNY CAM IN THE ROOM WELL TO KEEP AN EYE ON HIM. CALLED AND SPOKE TO CAREGIVER AMY WHO IS GOING TO COME IN TODAY TO ASSIST PT/OT WITH GETTING PT UP.
--- NOTE | 2020-11-29 16:51 | NUR ---
SHIFT SUMMARY- PT A/O TO SELF ONLY. PT PLEASANT AND COOPERATIVE. LS CLEAR, PT HAS BEEN ON AND OFF 02 TODAY, PT WITH SATS AT 92% ON RA THIS AM AND NOTED TO BE AT 85% THIS AFTERNOON AND PLACED BACK ON 02, PT DOES NOT KEEP [address] PT WITH NO IV ACCESS. PT VERY WEAK, PT CAREGIVER IN TO ASSIST PT/OT WITH GETTING PT UP DUE TO PT NOT WAKING UP TO PARTICIPATE AND DID NOT WANT TO GET UP, THERAPY AND CAREGIVER ABLE TO SIT PT UP FOR A SHORT PERIOD OF TIME BEFORE HE BECAME TO FATIGUED. CAREGIVER TO COME BACK TOMORROW AROUND 1100 TO ASSESS MOBILITY. PER CAREGIVER AND DAUGHTER CAREGIVER IS THERE MAJORITY OF THE DAY 5 DAYS A WEEK AND A PERIOD OF THE DAY THE OTHER 2 AND A RADHANY CAM IS PRESENT, PT NORMALLY ABLE TO AMBULATE SHORT DISTANCES WHEN WANTS TO OTHERWISE HANGS OUT IN CHAIR. CAREGIVER REPORTS PT HAS NEVER BEEN THIS WEAK. POSSIBLE D/C HOME TOMORROW WITH CAREGIVER. NO OTHER ACUTE CHANGES THIS SHIFT.
--- NOTE | 2020-11-30 03:53 | NUR ---
SHIFT SUMMARY ADMITTED FOR UTI/SEPSIS. DNR CODE. PLAN IS FOR DC BACK TO [facility] WHEN STABLE. THIS SHIFT WE HAD ONE FEVER RECORDED (TAKEN PO), BUT ALL FOLLOW UP TEMPS WERE WNL. SEE PREVIOUS NOTE. MONITORING LABS, WHICH SO FAR HAVE BEEN TRENDING TOWARDS THE BETTER. PHYSICAL THERAPY HAS BEEN ORDERED FOR THIS PT HE IS NOT AT HIS BASELINE PHYSICALLY. HE DOES NOT FEED HIMSELF, FOOD AND DRINK MUST BE HELD TO HIS MOUTH. HE IS ON 3 LPM O2, RA @ HOME.
[2020-11-30 05:40] LABS: BASOPHILS ABSOLUTE AUTO 0.04 K/mm3 (0.00-0.23); BASOPHILS PERCENT AUTO 0 % (0-2); EOSINOPHILS ABSOLUTE AUTO 0.01 K/mm3 (0.00-0.68); EOSINOPHILS PERCENT AUTO 0 % (0-6); Hematocrit 38.6 % (37.0-53.0); Hemoglobin 12.7 g/dL (13.5-17.5); IMMATURE GRAN ABSOLUTE AUTO 0.24 K/mm3 (0.00-0.10); IMMATURE GRAN PERCENT AUTO 1 % (0-1); LYMPHOCYTES ABSOLUTE AUTO 0.98 K/mm3 (0.84-5.20); LYMPHOCYTES PERCENT AUTO 4 % (21-46); MONOCYTES ABSOLUTE AUTO 1.19 K/mm3 (0.16-1.47); MONOCYTES PERCENT AUTO 5 % (4-13); Mean Corpuscular HGB 30.2 pg (26.0-34.0); Mean Corpuscular HGB Conc 32.9 g/dL (31.5-36.5); Mean Corpuscular Volume 92 fL (80-100); NEUTROPHILS ABSOLUTE AUTO 19.98 K/mm3 (1.96-9.15); NEUTROPHILS PERCENT AUTO 89 % (41-73); Platelet Count 168 K/mm3 (150-400); RDW Coefficient Variation 14.7 % (11.7-14.2); RDW Standard Deviation 49.9 fL (35.1-46.3); Red Blood Cell Count 4.21 M/mm3 (4.30-5.90); White Blood Cell Count 22.44 K/mm3 (4.00-11.30)
[2020-11-30 05:45] LABS: Mean Platelet Volume 13.2 fL (9.1-12.4)
[2020-11-30 06:02] LABS: Bun/Creatinine Ratio 21.6 (12.0-20.0); Calcium, Blood 8.6 mg/dL (8.5-10.1); Creatinine, Blood 1.71 mg/dL (0.60-1.20); Potassium, Blood 4.1 mmol/L (3.5-5.5)
--- NOTE | 2020-11-30 18:17 | NUR ---
PT AxOx1- SELF. PT VERY CONFUSED AND SLEEPY TODAY. HE WORKED WITH PT AND OT TODAY AND WAS ABLE TO GET UP AND WALK IN THE ROOM. PT BECAME VERY TIRED AFTER THERAPY AND SLEPT THROUGH DINNER. SPEECH EVAL ATTEMPTED TO SEE HIM TWICE, BUT HE WOULD NOT WAKE UP. PT DEVELOPED LOW GRADE FEVER THIS AFTERNOON, BUT IT TRENDED DOWN SHORTLY AFTER. IV ABX STARTED TODAY. PT STILL POCKETING FOOD/PILLS. FEEDER ASSIST FOR MEALS AND MEDS ONE AT A TIME IN APPLESAUCE UNTIL ST CAN COMPLETE EVAL TOMORROW. VITALS REVIEWED. PT CURRENTLY RESTING IN BED WITH CALL LIGHT IN REACH. DENIES ANY NEEDS AT THIS TIME.
--- NOTE | 2020-11-30 22:08 | NUR ---
PT ASKED ABOUT HOME CPAP USE. PT DENIED HAVING CPAP AT HOME AND STATED HE DID NOT WANT ONE HERE. RN PRESENT AND STATED PATIENT HAS BEEN CONFUSED AND HAD RIPPED OUT IV'S. PT PREVIOUSLY WAS ON CONTINUOUS OXIMETER BUT HAD BEEN CONTINUOUSLY REMOVING FINGER PROBES. PT NOT WILLING TO SIGN REFUSAL, RN AND RT SIGNED WITNESS.
--- NOTE | 2020-12-01 04:06 | NUR ---
SHIFT SUMMARY ADMITTED FOR UTI/SEPSIS. POSSIBLE PNEUMONIA. DNR CODE. PT IS CONFUSED, DEMENTIA AT BASELINE. ON ELIQUIS FOR RECURRENT PE'S/DVT'S. MECHANICAL SOFT DIET, HE IS A FEEDER HERE. PHYSICAL/OCCUPATIONAL THERAPY ORDERED, HE HAS NOT BEEN WALKING HERE. IV ANTIBIOTICS ARE SCHEDULED. ST EVAL - THERE HAS BEEN SOME POCKETING OF MEDS REPORTED. HE IS INCONTINENT. HE IS ON 3 1/2 TO 4 LPM O2, HE CAN DESATURATE. HE HAS HAD SOME LOW GRADE FEVERS. HE PULLED OUT ANOTHER IV THIS SHIFT, NEW ONE IN PLACE. HE HAS PULLED OUT IV'S ON PREVIOUS SHIFTS, EVEN WHEN THEY ARE WELL COVERED. HE IS FROM [facility], HE HAS CAREGIVERS THERE BUT THEY ARE NOT 24 HR/DAY.
[2020-12-01 04:51] LABS: BASOPHILS ABSOLUTE AUTO 0.05 K/mm3 (0.00-0.23); BASOPHILS PERCENT AUTO 0 % (0-2); EOSINOPHILS ABSOLUTE AUTO 0.02 K/mm3 (0.00-0.68); EOSINOPHILS PERCENT AUTO 0 % (0-6); Hematocrit 38.6 % (37.0-53.0); Hemoglobin 12.8 g/dL (13.5-17.5); IMMATURE GRAN PERCENT AUTO 2 % (0-1); LYMPHOCYTES ABSOLUTE AUTO 1.03 K/mm3 (0.84-5.20); LYMPHOCYTES PERCENT AUTO 6 % (21-46); MONOCYTES ABSOLUTE AUTO 1.16 K/mm3 (0.16-1.47); MONOCYTES PERCENT AUTO 7 % (4-13); Mean Corpuscular HGB 30.5 pg (26.0-34.0); Mean Corpuscular HGB Conc 33.2 g/dL (31.5-36.5); Mean Corpuscular Volume 92 fL (80-100); Mean Platelet Volume 12.7 fL (9.1-12.4); NEUTROPHILS ABSOLUTE AUTO 14.69 K/mm3 (1.96-9.15); NEUTROPHILS PERCENT AUTO 85 % (41-73); Platelet Count 174 K/mm3 (150-400); RDW Coefficient Variation 14.9 % (11.7-14.2); RDW Standard Deviation 50.1 fL (35.1-46.3); White Blood Cell Count 17.25 K/mm3 (4.00-11.30)
[2020-12-01 05:15] LABS: Bun/Creatinine Ratio 26.1 (12.0-20.0); Calcium, Blood 8.9 mg/dL (8.5-10.1); Creatinine, Blood 1.53 mg/dL (0.60-1.20); Potassium, Blood 4.4 mmol/L (3.5-5.5)
[2020-12-01 10:15] LABS: Vancomycin, Random 12.5 ug/mL
--- NOTE | 2020-12-01 17:54 | NUR ---
SHIFT SUMMARY PT AxOx2, SELF AND FOLLOWS DIRECTION WITH FREQUENT CONFUSION. MILD IMPROVEMENT IN MENTATION NOTED TODAY VS YESTERDAY. PT REFUSED O2 SUPPLEMENT TODAY. MORE AWAKE TIME NOTED TODAY WELL. PT WORKED WITH PHYSICAL THERAPY AND OT TODAY, MAKING IMPROVEMENTS PHYSICALLY. 1 PERSON ASSIST WITH FWW AND GB FOR TRANSFERS. SPEECH EVAL DONE TODAY. SEE NOTES FOR DETAILS. WBC TRENDING DOWN. CURRENT PLAN IS TO CONTINUE IV ABX AND DC BACK TO [facility] WITH CAREGIVER ASSISTANCE. CAREGIVER, AMY IN TO VISIT TODAY, UPDATED ON PLAN. PT CURRENTLY SITTING IN CHAIR EATING DINNER. VITALS REVIEWED. DENIES ANY NEEDS AT THIS TIME.
--- NOTE | 2020-12-02 04:36 | NUR ---
PARTICIPANT ADMINISTRATOR SUMMARY A/O TO SELF ONLY. PULLED OUT IV THIS EVENING. NEW IV TO R. FA PATENT AND SECURED. IV ABX GIVEN. DENIES PAIN. GIVEN 2-3L O2 VIA NC BUT PT CONTINOUSLY TAKING IT OFF T/O NIGHT. VSS, NO ACUTE CHANGES AT THIS TIME. BED IN LOWEST POSIITON WITH CALL LIGHT IN REACH. WILL CONTINUE TO MONITOR AND REPORT TO ONCOMING RN.
[2020-12-02 04:56] LABS: BASOPHILS ABSOLUTE AUTO 0.07 K/mm3 (0.00-0.23); BASOPHILS PERCENT AUTO 1 % (0-2); EOSINOPHILS ABSOLUTE AUTO 0.26 K/mm3 (0.00-0.68); EOSINOPHILS PERCENT AUTO 2 % (0-6); Hematocrit 40.2 % (37.0-53.0); IMMATURE GRAN ABSOLUTE AUTO 0.44 K/mm3 (0.00-0.10); IMMATURE GRAN PERCENT AUTO 3 % (0-1); LYMPHOCYTES ABSOLUTE AUTO 1.48 K/mm3 (0.84-5.20); LYMPHOCYTES PERCENT AUTO 10 % (21-46); MONOCYTES ABSOLUTE AUTO 1.03 K/mm3 (0.16-1.47); MONOCYTES PERCENT AUTO 7 % (4-13); Mean Corpuscular HGB 29.5 pg (26.0-34.0); Mean Corpuscular HGB Conc 32.3 g/dL (31.5-36.5); Mean Corpuscular Volume 91 fL (80-100); Mean Platelet Volume 12.8 fL (9.1-12.4); NEUTROPHILS ABSOLUTE AUTO 12.01 K/mm3 (1.96-9.15); NEUTROPHILS PERCENT AUTO 79 % (41-73); Platelet Count 191 K/mm3 (150-400); RDW Coefficient Variation 15.1 % (11.7-14.2); RDW Standard Deviation 50.7 fL (35.1-46.3); White Blood Cell Count 15.29 K/mm3 (4.00-11.30)
[2020-12-02 05:48] LABS: Bun/Creatinine Ratio 29.8 (12.0-20.0); Calcium, Blood 8.8 mg/dL (8.5-10.1); Creatinine, Blood 1.31 mg/dL (0.60-1.20)
--- NOTE | 2020-12-02 18:15 | NUR ---
PT IS ALERT, ORIENTED TO SELF, THE PT IS UP WITH ASSIST NEEDS REDIRECTION, THE PT NEEDS ASSISTANCE WITH MEALS, THE PT APPEARED TO BE BREATHING EASILY ON RA TODAY, O2 SAT'S 92-93% PT DENIED ANY PAIN, THE PHYSICAL THERAPIST ATTEMPTED TO WORK WITH THE PT TODAY , HOWEVER THE PT WAS UNABLE TO FOLLOW DIRECTION, CALL LIGHT IN REACH WILL CONTINUE TO MONITOR AND ASSESS FOR CHANGES
--- NOTE | 2020-12-03 03:55 | NUR ---
DISH UP PERSON SUMMARY A/O TO SELF ONLY. PT ATTEMPTING TO GET OUT OF BED, 4 SIDE RAILS IN USE D/T CONFUSION AND UNSTEADY GAIT. DENIES PAIN. CURRENTLY ON RA WITH SATS GREATER THAN 92. VSS, NO ACUTE CHANGES AT THIS TIME. BED IN LOWEST POSITION WITH CALL LIGHT IN REACH. WILL CONTINUE TO MONITOR AND REPORT TO ONCOMING RN.
[2020-12-03 10:06] LABS: Hematocrit 41.3 % (37.0-53.0); Hemoglobin 13.5 g/dL (13.5-17.5); Mean Corpuscular HGB 29.7 pg (26.0-34.0); Mean Corpuscular HGB Conc 32.7 g/dL (31.5-36.5); Mean Corpuscular Volume 91 fL (80-100); Mean Platelet Volume 12.8 fL (9.1-12.4); Platelet Count 230 K/mm3 (150-400); RDW Coefficient Variation 15.2 % (11.7-14.2); RDW Standard Deviation 50.5 fL (35.1-46.3); Red Blood Cell Count 4.55 M/mm3 (4.30-5.90); White Blood Cell Count 13.58 K/mm3 (4.00-11.30)
[2020-12-03 10:23] LABS: Anion Gap 3 mmol/L (6-16); Blood Urea Nitrogen 30 mg/dL (8-24); Bun/Creatinine Ratio 24.8 (12.0-20.0); CO2, Blood 30 mmol/L (21-32); Calcium, Blood 8.8 mg/dL (8.5-10.1); Chloride, Blood 109 mmol/L (98-108); Creatinine, Blood 1.21 mg/dL (0.60-1.20); Glomerular Filtration Rate >60 (60-); Glucose, Blood 175 mg/dL (70-99); Potassium, Blood 4.4 mmol/L (3.5-5.5); Sodium, Blood 142 mmol/L (136-145)
[2020-12-03 10:26] LABS: Vancomycin, Trough 19.2 ug/mL (5.0-10.0)
--- NOTE | 2020-12-03 17:12 | NUR ---
PT IS ALERT, ORIENTED TO SELF, PT APPEARS TO BE BREATHING EASILY ON RA AT THIS TIME, THE PT IS A MINIMAL ASSIST TO TRANSFER, THE PT WAS UP IN THE CHAIR FOR BREAKFAST TODAY, PT SEEMS A LITTLE MORE CONFUSED TODAY COMPARED TO YESTERDAY, POOR APPETITE AND IRRITABLE, THE PT DID MENTION THAT HE FELT TIRED TODAY, THE PT DENIED ANY PAIN OR NAUSEA, THE PT DID SLEEP FOR SEVERAL HOURS THIS AFTERNOON. THE PTS PATTERN CHART WRITER CAME TO SEE THE PT FOR A SHORT TIME TODAY. CALL LIGHT IN REACH, BED ALARM ON WILL CONTINUE TO MONITOR AND ASSESS FOR CHANGES
--- NOTE | 2020-12-04 04:47 | NUR ---
SHIFT SUMMARY NO ACUTE CHANGES TO REPORT THIS SHIFT. PT IS PLESANTLY CONFUSED, A/OX1, KNOWS SELF, BUT HAS A DIFFICULT TIME FOLLOWING MOST DIRECTIONS. PT IS HEAVY 2 PA. NO ATTEMPTS TO GET OOB. PT HAS RESTED WELL MOST OF THE NIGHT. IV ANTIBIOTICS CONTINUED ORDERED. BED IN LOWEST POSITION, BED ALARM IN PLACE, CALL LIGHT WITHIN REACH.
--- NOTE | 2020-12-04 19:25 | NUR ---
somulent all day, awake enough to take medication in as with hob at 90 degrees, call light in reach, o2 at 2L via nc, abx infusing with no s/sx of infection or infiltration, bed in low position and alarm on, no acute change noted during shift, bsr shared with noc nurse and pt
--- NOTE | 2020-12-04 19:50 | NUR ---
ASSUMPTION OF CARE. ALERT BUT IS UNABLE TO STATES HIS NAME OR , UNABLE TO ANSWER ANY ORIENTATION QUESITONS HE CONTINUES TO FALL ASLEEP. VERY FATIQUED AND TIRED. PALE. LUNG SOUNDS ARE VERY DIMINISHED BUT HE DOES NOT TAKE DEEP BREATHS. ON 2 LITERS THAT HE CONTINUES TO REMOVE OFF HIS FACE. SARAH IS PATIENT AND DRAINING. ATTENDS DRY. REDNESS UNDER PANUS WITH SOME POWDER. SL IV. ENCOURAGED COUGH TO REMOVE AUDIABLE SECREATIONS IN THROAT. UNABLE TO CLEAR FULLY. WILL CONTINUE TO MONITOR. BED ALARM IS ON, AND CALL LIGHT IS IN REACH.
[2020-12-05 05:17] LABS: Hematocrit 38.7 % (37.0-53.0); Hemoglobin 12.6 g/dL (13.5-17.5); Mean Corpuscular HGB 30.1 pg (26.0-34.0); Mean Corpuscular HGB Conc 32.6 g/dL (31.5-36.5); Mean Corpuscular Volume 92 fL (80-100); Mean Platelet Volume 12.9 fL (9.1-12.4); Platelet Count 245 K/mm3 (150-400); RDW Coefficient Variation 15.7 % (11.7-14.2); RDW Standard Deviation 52.8 fL (35.1-46.3); Red Blood Cell Count 4.19 M/mm3 (4.30-5.90); White Blood Cell Count 12.29 K/mm3 (4.00-11.30)
--- NOTE | 2020-12-05 05:30 | NUR ---
SHIFT SUMMARY: ALERT BUT VERY FATIQUED AND HAD DIFFICULTY HOLDING EYES OPEN FOR ASSESSMENT. CONFUSED, WAS UNABLE TO STATE HIS NAME AND . DOES FOLLOW SOME DIRECTION. BEDREST, WEAK. LUNG SOUNDS DIMINISHED AND DIFFICULT TO ASCULATE DUE TO PATIENT NOT BREATHING DEEP. 02 AT 2L NC, SATS HOLDING IN MID 90'S. BLE EDEMA NOTED, CATHETER PATENT AND DRAINING, BLOOD SUGAR 132. MEDS CRUSHED IN APPLESAUCE. BP WAS ELEVATED AT 194/101 MEDS GIVEN AND RECHECK WAS 169/85. HAS SLEPT T/O THE SHIFT, BARLEY WAKING UP FOR LAB. REPOSITIONS SELF IN BED. PLAN: ANTIBOTIC TX, SUPPORTIVE CARE. MAY NEED HIGHER LIVING OF CARE. BED ALARM IS ON AND CALL LIGHT IS IN REACH.
[2020-12-05 05:40] LABS: Alanine Aminotransfer (ALT/SGP 27 U/L (12-78); Albumin, Blood 1.9 g/dL (3.4-5.0); Albumin/Globulin Ratio 0.4 (0.8-1.8); Alk Phos 146 U/L (50-136); Anion Gap 4 mmol/L (6-16); Aspartate Aminotrans (AST/SGOT 20 U/L (12-37); BASOPHILS PERCENT MAN 0 % (0-2); Bilirubin, Total 0.4 mg/dL (0.1-1.0); Blood Urea Nitrogen 23 mg/dL (8-24); Bun/Creatinine Ratio 19.2 (12.0-20.0); CO2, Blood 30 mmol/L (21-32); Calcium, Blood 8.5 mg/dL (8.5-10.1); Chloride, Blood 111 mmol/L (98-108); EOSINOPHILS PERCENT MAN 0 % (0-6); Glomerular Filtration Rate >60 (60-); Glucose, Blood 101 mg/dL (70-99); LYMPHOCYTES ABSOLUTE MAN 1.72 K/mm3 (0.84-5.20); LYMPHOCYTES PERCENT MAN 14 % (21-46); METAMYELOCYTE ABSOLUTE MAN 0.36 K/mm3 (0.00-0.00); METAMYELOCYTE PERCENT MAN 3 % (0-0); MONOCYTES ABSOLUTE MAN 0.86 K/mm3 (0.16-1.47); MONOCYTES PERCENT MAN 7 % (4-13); MYELOCYTE ABSOLUTE MAN 0.12 K/mm3 (0.00-0.00); MYELOCYTE PERCENT MAN 1 % (0-0); NEUTROPHILS ABSOLUTE MAN 9.21 K/mm3 (1.96-9.15); Potassium, Blood 4.2 mmol/L (3.5-5.5); SEG NEUTROPHILS PERCENT MAN 75 % (41-73); Sodium, Blood 145 mmol/L (136-145); TOTAL CELLS COUNTED 100; Total Protein, Blood 6.9 g/dL (6.4-8.2)
[2020-12-05 10:45] LABS: Vancomycin, Trough 10.9 ug/mL (5.0-10.0)
--- NOTE | 2020-12-05 18:38 | NUR ---
SHIFT SUMMARY. ALERT, ORIENTATED TO SELF. PT IS ON RA, LUNGS DIM. PT DENIES PAIN, NO S/SX OF DISTRESS OR DISCOMFORT. PT STILL WITH POOR PO INTAKE FOR BREAKFAST AND LUNCH, ST CHANGED DIET TO PUREE PT WAS HAVING DIFFICULTY CHEWING AND SWALLOWING WITH CUES, THOUGH HE DID NOT COMPREHEND HE HAD FOOD STILL IN HIS MOUTH. PT INCONTINENT OF BOWEL AND BLADDER. REPOSITIONING WITH INCONTINENCE CARE. PT HYPERTENSIVE THIS EVENING, DR. ANTONIO NOTIFIED AND RECIEVED ORDERS FOR IV HYDRALIZINE. NO OTHER CHANGES OR CONCERNS.
--- NOTE | 2020-12-05 19:53 | NUR ---
ASSUMPTION OF CARE. KNOWS NAME WHEN CALLED BUT IS UNABLE TO STATES IT OR ANSWER ANY OTHER ORIENTATION QUESTIONS. HE GRABBED HIS DENTURES OFF THE TABLE AND ASKED "WHAT ARE THESE". TOLD HIM BUT HE DID NOT COMPERHEND. VERY ADVANCED DEMENTIA. LUNG SOUNDS ARE DIMINISHED THROUGHOUT, DOES NOT FOLLOW DIRECTION WHEN ASKED. COUGH IS NON-PRODUCTIVE AND OCCATIONAL. EDEMA NOTED TO BLE. RASH TO UPPER TRUNK AREA WITH SCABS ALL OVER. ABDOMIN DISTENDED, BT ACTIVE. SKIN BREAKDOWN IN UNDER THE PANUS, GROIN AND BOTTOM. UNABLE TO USE CALL LIGHT, HE HANDED IT BACK TO ME LIKE HE DID NOT KNOW WHAT TO DO WITH IT. BED ALARM IS ON. WILL CONTINUE TO MONITOR.
--- NOTE | 2020-12-06 05:19 | NUR ---
SHIFT SUMMARY: ALERT TO SELF, BUT UNABLE TO STATES NAME OR , FORGETS NAMES OF OBJECTS AND DOES NOT UNDERSTAND MOST OF CONVERSATION OR WHAT HE IS BEING TOLD. HE GRABBED HIS DENTURES LAST NIGHT AND ASKED "WHAT ARE THESE" TOLD THEM THEY WERE HIS TEETH AND HE WENT BLANK. GIANCARLO ON ASKED HIM TO ROLL OVER AND HE ASKED WHAT THAT WAS. FOLLOWS DIRECTION SOME OF THE TIME. ABLE TO POSITION SELF IN BED BUT DOES NOT TRY TO GET UP. MILD EDEMA IN THE LEGS. LUNG SOUNDS DIMINISHED T/O. NO PAIN. IV SL. REFUSED LABS TO BE DRAWN THIS AM. VS SHOWS BP STILL FUNNING IN THE 150'S. BLOOD SUGAR 161. ON RA WITH GOOD SATS. SKIN UNDER PANUS AND BOTTOM ARE IMPROVING SLIGHTLY, CATHETER PATENT. DOES NOT USE CALL LIGHT, DOES NOT UNDERSTAND IT. BED ALARM IS ON. CALL LIGHT IS IN REACH.
[2020-12-06 08:33] LABS: Hematocrit 41.2 % (37.0-53.0); Hemoglobin 13.5 g/dL (13.5-17.5); Mean Corpuscular HGB 29.8 pg (26.0-34.0); Mean Corpuscular HGB Conc 32.8 g/dL (31.5-36.5); Mean Corpuscular Volume 91 fL (80-100); Mean Platelet Volume 11.7 fL (9.1-12.4); Platelet Count 284 K/mm3 (150-400); RDW Coefficient Variation 15.3 % (11.7-14.2); RDW Standard Deviation 51.3 fL (35.1-46.3); Red Blood Cell Count 4.53 M/mm3 (4.30-5.90); White Blood Cell Count 15.52 K/mm3 (4.00-11.30)
[2020-12-06 08:57] LABS: BASOPHILS ABSOLUTE MAN 0.15 K/mm3 (0.00-0.23); BASOPHILS PERCENT MAN 1 % (0-2); EOSINOPHILS ABSOLUTE MAN 0.31 K/mm3 (0.00-0.68); EOSINOPHILS PERCENT MAN 2 % (0-6); LYMPHOCYTES ABSOLUTE MAN 1.86 K/mm3 (0.84-5.20); LYMPHOCYTES PERCENT MAN 12 % (21-46); METAMYELOCYTE ABSOLUTE MAN 0.31 K/mm3 (0.00-0.00); METAMYELOCYTE PERCENT MAN 2 % (0-0); MONOCYTES ABSOLUTE MAN 0.93 K/mm3 (0.16-1.47); MONOCYTES PERCENT MAN 6 % (4-13); MYELOCYTE ABSOLUTE MAN 0.31 K/mm3 (0.00-0.00); MYELOCYTE PERCENT MAN 2 % (0-0); NEUTROPHILS ABSOLUTE MAN 11.64 K/mm3 (1.96-9.15); SEG NEUTROPHILS PERCENT MAN 75 % (41-73); TOTAL CELLS COUNTED 100
--- NOTE | 2020-12-06 13:30 | NUR ---
REVIEW D'C INSRUCTIONS WITH CAREGIVER. IN ROOM AND ANSWERS ANY QUESTIONS. AWARE OF CHANGES IN MEDS. PER CAREGIVER, DAUGHTER IS LOOKING INTO 24 HOUR CAREGIVERS. AT THIS TIME PATIENT HAS ONE CAREGIVER AND A "NANNY CAM" REST OF TIME. PATIENT ASSISTS IN DRESSING. STAND W/ASSIST TO W/C. RN WHEELS PATIENT DOWN W/CAREGIVER TO POV.
[2021-01-22] MEDS ORDERED: CEFPODOXIME PR100 MG PO (21:24)
== END 2020-12-06 13:45 | disposition home or self-care (01) | DRG 871 ==
LOC: ER 21:13 → MEDS 23:02
PROVIDERS: Emergency Medicine; Internal Medicine; Pharmacist; ADMIT Internal Medicine
PROC: 5A09357 Assistance with Respiratory Ventilation, Less than 24 Consecutive Hours, Continuous Positive Airway Pressure (ICD-10-PCS; principal; 2020-11-30)
DX: A41.9 Sepsis, unspecified organism (principal); J96.01 Acute respiratory failure with hypoxia; J18.9 Pneumonia, unspecified organism; G92 Toxic encephalopathy; N39.0 Urinary tract infection, site not specified; R65.20 Severe sepsis without septic shock; F03.90 Unspecified dementia, unspecified severity, without behavioral disturbance, psychotic disturbance, mood disturbance, and anxiety; Z86.718 Personal history of other venous thrombosis and embolism; N18.2 Chronic kidney disease, stage 2 (mild); G47.33 Obstructive sleep apnea (adult) (pediatric); Z66 Do not resuscitate; Z91.19 Patient's noncompliance with other medical treatment and regimen; Z20.822 Contact with and (suspected) exposure to COVID-19; I12.9 Hypertensive chronic kidney disease with stage 1 through stage 4 chronic kidney disease, or unspecified chronic kidney disease; E78.5 Hyperlipidemia, unspecified; E11.22 Type 2 diabetes mellitus with diabetic chronic kidney disease; J45.909 Unspecified asthma, uncomplicated; K21.9 Gastro-esophageal reflux disease without esophagitis; N40.0 Benign prostatic hyperplasia without lower urinary tract symptoms; F32.9 Major depressive disorder, single episode, unspecified; Z79.01 Long term (current) use of anticoagulants; E66.01 Morbid (severe) obesity due to excess calories; Z87.891 Personal history of nicotine dependence; Z88.8 Allergy status to other drugs, medicaments and biological substances; Z88.0 Allergy status to penicillin; Z79.899 Other long term (current) drug therapy; Z87.442 Personal history of urinary calculi
CPT/HCPCS: 0241U; 36415; 71045; 80048; 80053; 80202; 82803; 82947; 83605; 84145; 85025; 85027; 87040; 92526; 92610; 93005; 93010; 94760; 96374; 97116; 97162; 97165; 97530; 97535; 99285-25; A9270; J0360; J0456; J0692; J0696; J1815; J3370; J7030; J7050

== ENCOUNTER 2021-01-27 13:10 | Inpatient (IN) | payer OTHER ==
[~2021-01-27] VITALS: Ht 188 cm; Wt 99.2 kg
[~2021-01-27 13:10] MED LIST changes: +CEFPODOXIME PR100 MG PO
[2021-01-27 13:44] LABS: BASOPHILS ABSOLUTE AUTO 0.07 K/mm3 (0.00-0.23); BASOPHILS PERCENT AUTO 1 % (0-2); EOSINOPHILS ABSOLUTE AUTO 0.21 K/mm3 (0.00-0.68); EOSINOPHILS PERCENT AUTO 3 % (0-6); Hematocrit 43.2 % (37.0-53.0); Hemoglobin 14.3 g/dL (13.5-17.5); IMMATURE GRAN ABSOLUTE AUTO 0.04 K/mm3 (0.00-0.10); IMMATURE GRAN PERCENT AUTO 1 % (0-1); LYMPHOCYTES ABSOLUTE AUTO 1.21 K/mm3 (0.84-5.20); LYMPHOCYTES PERCENT AUTO 20 % (21-46); MONOCYTES ABSOLUTE AUTO 0.23 K/mm3 (0.16-1.47); MONOCYTES PERCENT AUTO 4 % (4-13); Mean Corpuscular HGB Conc 33.1 g/dL (31.5-36.5); Mean Corpuscular Volume 91 fL (80-100); Mean Platelet Volume 11.8 fL (9.1-12.4); NEUTROPHILS ABSOLUTE AUTO 4.38 K/mm3 (1.96-9.15); NEUTROPHILS PERCENT AUTO 71 % (41-73); Platelet Count 221 K/mm3 (150-400); RDW Coefficient Variation 14.3 % (11.7-14.2); RDW Standard Deviation 48.2 fL (35.1-46.3); Red Blood Cell Count 4.76 M/mm3 (4.30-5.90); White Blood Cell Count 6.14 K/mm3 (4.00-11.30)
[2021-01-27 14:08] LABS: Alanine Aminotransfer (ALT/SGP 122 U/L (12-78); Albumin, Blood 2.7 g/dL (3.4-5.0); Albumin/Globulin Ratio 0.6 (0.8-1.8); Alk Phos 337 U/L (50-136); Anion Gap 8 mmol/L (6-16); Aspartate Aminotrans (AST/SGOT 69 U/L (12-37); Bilirubin, Total 0.5 mg/dL (0.1-1.0); Blood Urea Nitrogen 17 mg/dL (8-24); Bun/Creatinine Ratio 12.2 (12.0-20.0); CO2, Blood 26 mmol/L (21-32); Calcium, Blood 8.6 mg/dL (8.5-10.1); Chloride, Blood 106 mmol/L (98-108); Creatinine, Blood 1.39 mg/dL (0.60-1.20); Ethanol (Alcohol), Blood, Med <3 mg/dL; Globulin, Blood 4.9 g/dL (2.2-4.0); Glomerular Filtration Rate 52 (60-); Glucose, Blood 162 mg/dL (70-99); Salicylate <1.7 mg/dL (2.8-20.0); Sodium, Blood 140 mmol/L (136-145); Total Protein, Blood 7.6 g/dL (6.4-8.2)
[2021-01-27 14:25] LABS: Acetaminophen, Random <2.0 ug/mL (10.0-30.0)
[2021-01-27 14:46] LABS: Source, Urine Catheter
[2021-01-27 14:50] LABS: Appearance, Urine Cloudy (Clear); Bilirubin, Urine Neg (Neg); Blood, Urine 2+ (Neg); Color, Urine Yellow (P-Yellow); Glucose Qualitative, Urine Neg (Neg); Ketones, Urine 3+ (Neg); Leukocyte Esterase, Urine 3+ (Neg); Nitrite, Urine Neg (Neg); Protein, Urine 3+ (Neg); Urobilinogen, Urine NORM (Normal)
[2021-01-27 15:02] LABS: Bacteria Many /hpf; Squamous Epithelial Cells Rare /hpf (Few); White Blood Cells, Urine 50-100 /hpf (0-5)
[2021-01-27 15:05] LABS: U Amphetamine Screen Not Detected; U Barbituate Screen Not Detected; U Benzodiazapine Screen Not Detected; U Buprenorphine Screen Not Detected; U Cannabinoids Screen Not Detected; U Cocaine Screen Not Detected; U Methadone Screen Not Detected; U Methamphetamine Screen Not Detected; U Opiates Screen Not Detected; U Oxycodone Screen Not Detected; U Phencyclidine Screen Not Detected; U Propoxyphene Screen Not Detected
--- NOTE | 2021-01-27 19:09 | NUR ---
PATIENT ARRIVED TO THE FLOOR AT 1825, REPORT RECEIVED FROM KULWINDER ESPOSITO. PATIENT TRANSFERED TO BED, PICS TAKEN OF SCROTAL AND COCCYX WOUNDS. VSS, ON RA. NEPHEW AT BEDSIDE ASSISTING WITH HX. REPORTS GIVEN TO CARTOGRAPHY/MAPPING TECHNICIAN DENIA MIRAMONTES.
[2021-01-28 04:05] LABS: BASOPHILS ABSOLUTE AUTO 0.07 K/mm3 (0.00-0.23); BASOPHILS PERCENT AUTO 1 % (0-2); EOSINOPHILS ABSOLUTE AUTO 0.27 K/mm3 (0.00-0.68); EOSINOPHILS PERCENT AUTO 4 % (0-6); Hematocrit 40.3 % (37.0-53.0); Hemoglobin 12.9 g/dL (13.5-17.5); IMMATURE GRAN ABSOLUTE AUTO 0.05 K/mm3 (0.00-0.10); IMMATURE GRAN PERCENT AUTO 1 % (0-1); LYMPHOCYTES ABSOLUTE AUTO 1.95 K/mm3 (0.84-5.20); LYMPHOCYTES PERCENT AUTO 26 % (21-46); MONOCYTES ABSOLUTE AUTO 0.48 K/mm3 (0.16-1.47); MONOCYTES PERCENT AUTO 7 % (4-13); Mean Corpuscular HGB 29.7 pg (26.0-34.0); Mean Corpuscular Volume 93 fL (80-100); Mean Platelet Volume 11.5 fL (9.1-12.4); NEUTROPHILS ABSOLUTE AUTO 4.56 K/mm3 (1.96-9.15); NEUTROPHILS PERCENT AUTO 62 % (41-73); Platelet Count 225 K/mm3 (150-400); RDW Coefficient Variation 14.4 % (11.7-14.2); RDW Standard Deviation 49.3 fL (35.1-46.3); Red Blood Cell Count 4.34 M/mm3 (4.30-5.90); White Blood Cell Count 7.38 K/mm3 (4.00-11.30)
[2021-01-28 04:48] LABS: Bun/Creatinine Ratio 12.6 (12.0-20.0); Calcium, Blood 8.5 mg/dL (8.5-10.1); Creatinine, Blood 1.27 mg/dL (0.60-1.20); Potassium, Blood 3.8 mmol/L (3.5-5.5)
--- NOTE | 2021-01-28 06:05 | NUR ---
PT ORIENTED ONLY TO SELF. NO SPEECH. GROANS W/ DISCOMFORT. INCONTINENT. VSS. REPOSITIONED FREQUENTLY. SIGNIFICANT SKIN BREAKDOWN ON COCCYX. SKIN RED IRRITATED. PT COUGHS WHEN TAKING PILLS. SUGGEST THICKENED FLUIDS. BED ALARM ON. CALL LIGHT WITHIN REACH
--- NOTE | 2021-01-28 07:38 | NUR ---
NURSING PCU DAYSHIFT: Assumed care of pt at approx 0700. Occasional moans though no purposeful response or verbal communications, unable to follow simple commands. Ext's weak though equal, pupils equal and reactive. Skin fairly intact though breakdown reported in folds of groin and buttocks. Tele in place, NSR, SBP 160's prior to a.m. meds, trace BLE edema. L/S coarse im mid/upper lobes, respirations shallow, cough weak/moist. Abd obese, SNT, BT+, incontinent. PIV x1, s/l. Pt appears to be resting comfortably at this time. Tab alarm in place for safety. Maintaining strict NPO d/t high aspiration risk, a.m. med hold as well. No s/s of acute distress, round frequently d/t inability to use call light, heel protectors in place and Q2 hr turn schedule in place to prevent SBD. Awaiting rounding from PMD, cont to monitor for any changes.
--- NOTE | 2021-01-28 13:08 | NUR ---
ASSUMED CARE OF PT FROM SCOTT MIRAMONTES.
--- NOTE | 2021-01-28 18:59 | NUR ---
PT HAS BEEN RESTING IN BED MOST OF THE DAY, ORIENTED TO SELF ONLY, PT IS TALKING TO STAFF MORE, WORDS ARE SHORT AND SIMPLE. PRN HYDRALAZINE GIVEN ONCE. ALL PO MEDS WERE HELD BY THE AM NURSE D/T SWALLOWING CONCERNS. PT'S CAREGIVER VISITED TODAY AND INFORMED THIS RN THAT THE PT TAKES MEDICATIONS BEST IN APPLE SAUCE. THIS RN PREFORMED A BEDSIDE SWALLOW EVAL, PT WAS ABLE TO SWALLOW MEDICATIONS IN APPLE SAUCE WITHOUT DIFFICULTY. PT HAS REMOVED HIS IV LATE IN THE SHIFT, THIS RN WILL PLACE A NEW ONE. PT HAS BECOME MORE MOBILE, ABLE TO SIT HIMSELF UP ON THE EDGE OF THE BED. BED ALARM IN PLACE FOR SAFETY.
--- NOTE | 2021-01-29 06:23 | NUR ---
pt cooperative and pleasant t/o noc. 1-2 words spoken in context but flat affect remains. new iv started and LR infusing. pt swallows pills well with applesauce. remains incontinent with frequent wet brief changes. repositioned and cream applied to coccyx and groin area. call light within reach. bed alarm on
[2021-01-29 09:01] LABS: Anion Gap 8 mmol/L (6-16); Blood Urea Nitrogen 15 mg/dL (8-24); Bun/Creatinine Ratio 12.9 (12.0-20.0); CO2, Blood 26 mmol/L (21-32); Chloride, Blood 107 mmol/L (98-108); Creatinine, Blood 1.16 mg/dL (0.60-1.20); Glomerular Filtration Rate >60 (60-); Glucose, Blood 102 mg/dL (70-99); Sodium, Blood 141 mmol/L (136-145)
[2021-01-29 09:02] LABS: Hematocrit 43.5 % (37.0-53.0); Hemoglobin 13.6 g/dL (13.5-17.5)
--- NOTE | 2021-01-29 10:15 | NUR ---
ASSUMED CARE OF PATIENT AT APPROX 0700. DURING ASSESMENT NOTED RIGHT SIDED NEGLECT AND FACIAL DROOP; TEXTILE FINISHER WEAKER ON RIGHT THAN LEFT. NOT FOLLOWING DIRECTIONS REGARDING MOVING LEGS. DR KNIGHT NOTIFIED. PT ALERT, ORIENTED TO SELF/NAME ONLY; UNABLE TO GIVE , DATE, PLACE, EVENT. FOLLOWING DIRECTS AT TIMES. PUPILS EQUAL AND REACTIVE. PT DENIES PAIN AND NO S/SX OF DISTRESS NOTED. LS CLEAR/DIM T/O; SPO2 >90% ON RA. TELE NSR PACS 60'S, PER TELE. VSS. WILL CONTINUE TO MONITOR.
--- NOTE | 2021-01-29 14:34 | NUR ---
Spoke with Bedside RN Lonnie who is covering for routine RN. Lonnie reports Pt has been experiencing intermittent agitation possibly due to clearing. Pt resting in bed upon arrival. Pt appears pleasantly confused and attempts to respond verbally. Pt has unintelligable mumbles. Pt intermittently attempts to take his tele pads and IV out. Bedside sitter assists with distracting Pt. Called and spoke with Pt's daughter Teri. Provided update and answered questions. Engaged in therapeutic discussion regarding the importance of planning for the future as disease progresses. Teri reports family has considered the possibility of Pt needing a higher level of care at some point in the future. The current plan is to keep Pt in his home for as long as possible. Pt has a caregiver who assists with many of Pt's needs and the times caregiver isn't there, family has a nanny cam in order to keep an eye on Pt. Teri reports at baseline Pt needs minimal assistance with his ADLs and functions fairly well. Teri requests being notified in advanced when hospitalist is considering D/C in order for her to make arrangements for transportation. Teri expresses appreciation of call and reports no other concerns at this time. Palliative Care will remain available.
--- NOTE | 2021-01-29 18:18 | NUR ---
SHIFT SUMMARY pt continues with right sided neglect, weakness and facial droop; pt mumbles incoherently, will nod yes/no, alert. For majority of shift, pt is pleasantly confused, appears aggitated this afternoon, provided 1:1 sitter for a while and then provided a fidget apron. Caregiver Griffin at bedside this afternoon: states pt has only had one dose of antifungal prior to admission. PT/OT orders per Dr. Armijo. No s/sx of distress t/o shift. denies pain, sob, nausea and dizziness t/o shift. head ct completed during shift. elevated bp noted, other vss. no other acute changes noted during shift. will continue to monitor unitl report given to oncoming rn.
--- NOTE | 2021-01-30 06:29 | NUR ---
SLEPT WELL T/O NOC. INCONTINENT IN BRIEF. CHANGED AND REPOSITIONED T/O NOC. X1 DOSE LABETELOL GIVEN FOR SBP GREATER THAN 160. TAKING MEDS WELL W/ APPLESAUCE. BED ALARM ON.
--- NOTE | 2021-01-30 15:13 | NUR ---
Spiritual care visit conducted. Patient is sitting on a chair and alert. Patient immediately attempts to talk but mostly mumbles with a couple clear words mixed in. I sit with patient and then provide prayer. I will continue to remain available to patient and family.
--- NOTE | 2021-01-30 16:33 | NUR ---
SHIFT SUMMARY PT RESPONDING TO VERBAL STIMULI THIS AM, UP IN CHAIR AND ALERT FOR MAJOIRTY OF DAY. 2 PERSON ASSIST WITH GAITBELT AND WALKER. PT HAS SLIGHT RIGHT FACIAL DROOP THIS AM. PT NOT FOLLOWING DIRECTIOSN DURING ASSESSMENT HE WAS FALLING BACK ASLEEP. CLINICAL MEDICAL ASSISTANT EQUALLY WEAK THIS AFTERNOON. PT VERBAL RESPONSE CONTINUES TO BE DIFFICULT TO UNDERSTAND, ANSWER YES/NO QUESTIONS, STATES SIMPLE STATEMENTS "HI" AND "IM DONE" WHILE EATING. PT ORIENTED TO SELF AND CITY (STAES HE IS IN [place]). PT LS CLEAR, DIM IN BASES; COASRE TO RLL. PT ABD DISTENDED, SOFT, NONTENDER, HYPOACTIVE T/O; SMALL SMEAR BM NOTED THIS AM. PT BP ELEVATED PRN HYDRALZINE GIVEN THIS AFTERNOON; HR 50-60'S. OTHER VSS. NO OTHER ACUTE CHANGES NOTED. WILL CONTINUE TO MONITOR UNITL REPORT GIVEN TO ONCOMING RN.
--- NOTE | 2021-01-30 22:01 | NUR ---
PT TX TO ROOM 343 ON MEDICAL FLOOR AT 2130. PT IN BED AT THIS TIME WITH ALARMS. PT IS CONFUSED, BUT ALERT AT THIS TIME.
--- NOTE | 2021-01-30 22:18 | NUR ---
TRANSFER TO [facility] ASSUMED CARE FROM DAY SHIFT. PT ALERT BUT NOT ORIENTED. VSS. LUNG SOUNDS CLEAR. BED ALARM IN PLACE, TOLERATED PO MEDS EASILY. RECEIVED REQUEST TO TRANSFER PT TO MEDICAL FLOOR. REPORT GIVEN TO [employer] MIRAMONTES. ALL BELONGINGS PACKED WITH PT. MASK ON PT WHILE OUT OF ROOM. OUT OF ROOM AT 8. PT TRANSPORTED W/OUT INCIDENT.
--- NOTE | 2021-01-31 16:09 | NUR ---
Pt resting in bed upon arrival. Pt is pleasantly confused and responds intermittenly with 1 to 2 word sentences. Pt often appears to struggle with processing questions. Pt's caregiver Griffin at bedside. Griffin reports Pt's mentation appears mild to moderately below baseline but physical abilitys appear at baseline. Reviewed PT notes and discussed case with Bedside RN Juanita. Spoke with Dr Armijo and discussed case. Palliative Care will remain available.
--- NOTE | 2021-01-31 18:44 | NUR ---
SHIFT SUMMARY: NO ACUTE EVENTS. HAS BEEN ALERT TO SELF, IS MOSTLY NON VERBAL. CG AMY VISITED TODAY. UNABLE TO ASSESS PAIN. POOR APPETITE, POCKETS FOOD ON R SIDE OF MOUTH. HYPERTENSIVE 192/103; HYDRALAZINE GIVEN. CAN TRANSFER FROM BED TO CHAIR WITH 1 PERSON ASSIST WITH FWW AND GAIT BELT.
--- NOTE | 2021-02-01 04:41 | NUR ---
SHIFT SUMMARY: SBP ELEVATED, HYDRALAZINE GIVEN X 2 PER ORDERS. AAOX1. SPEAKING IN SHORT, COMPLETE SENTENCES. ANSWERING QUESTIONS. CONTINUES W/ CONFUSION. PLEASANT. DOES NOT COMMUNICATE NEEDS. DENIES PAIN. HEAVY 2 ASSIST T/F W/ GAIT BELT. BED LOW, BED ALARM ON. INCONTINENT. NO ACUTE OVERNIGHT EVENTS. WCTM.
--- NOTE | 2021-02-01 16:47 | NUR ---
Shift Summary A/O to self. Denies nausea, vomiting, pain. Appetite is poor, patient also high risk aspiration. When feeding patient today with ground meat, patient aspirated and was coughing. L/S were wet immediately after aspiration. CG in to see patient. Up in chair for meals with 1-2/gait/FWW. Feeding assistance required. LR @ 125 continuous. Oxygen sats > 90% on RA. No respiratory distress noted. Meds crushed in applesauce, patient tolerated this well. WCTM and report to oncoming RN.
--- NOTE | 2021-02-02 04:31 | NUR ---
SHIFT SUMMARY: AAOX1. DENIES PAIN. SPEAKS MINIMALLY. CONFUSED, BUT DOES ANSWER QUESTIONS. SLOW TO RESPOND AND SLOW TO FORMULATE WORDS. WEAKNESS GREATER ON R SIDE W/ SHOE CUTTER/PUSHES/PULLS. ABLE TO FOLLOW COMMANDS. REMAINED IN BED TONIGHT. 2 ASSIST W/ TURNS. INCONTINENT. SBP ELEVATED, HYDRALAZINE ADMINISTERED PER ORDERS. LR INFUSING CONTINUOUSLY. NO ACUTE OVERNIGHT EVENTS. WCTM.
--- NOTE | 2021-02-02 05:39 | NUR ---
CALL TO HOSPITALIST / HTN BP INCREASED TO 187/84 UPON RECHECK AFTER ADMINISTRATION OF PRN HYDRALAZINE. SPOKE W/ DR. FOSTER, NEW ORDER RECEIVED FOR BLADDER SCAN Q SHIFT. PRN LABETALOL 10MG IV Q6HRS PRN SBP >160. TELE ADDED.
[2021-02-02] MEDS ORDERED: FLUC200 PO (09:24)
--- NOTE | 2021-02-02 12:55 | NUR ---
10 BEAT RUN OF [facility] CALLED AND NOTIFIED DR. Ryland CARRERA OF PATIENT HAVING 10 BEAT RUN OF [facility]. NO NEW ORDER. TELE D/C PER V.O. FROM DR. KNIGHT THIS MORNING.
--- NOTE | 2021-02-02 12:55 | NUR ---
RECEIVED V.O. FROM DR. KNIGHT TO D.C. TELEMETRY AND LACTATED RINGERS. ORDER UPDATED.
--- NOTE | 2021-02-02 15:22 | NUR ---
Discharge Summary Discharging to home with HH. Reviewed discharge paperwork with special needs caregiver Griffin. Meds faxed to preferred pharmacy. IV removed. Copy of d/c paperwork given to CG. Personal belongings sent home. Escorted by Alejandro MIRAMONTES via w/c. Worked with PT/OT today, up in chair for lunch.
== END 2021-02-02 15:10 | disposition home health service (06) | DRG 727 ==
LOC: ER 13:10 → PCU 16:18 → MEDS 16:18 → PCU 18:25 → MEDS 01-30 21:19 → ENPENDDIS 02-02 11:19 → MEDS 02-02 12:58
PROVIDERS: Emergency Medicine; Family Medicine; ADMIT Internal Medicine
DX: B37.49 Other urogenital candidiasis (principal); G92 Toxic encephalopathy; Z66 Do not resuscitate; E78.5 Hyperlipidemia, unspecified; F03.90 Unspecified dementia, unspecified severity, without behavioral disturbance, psychotic disturbance, mood disturbance, and anxiety; J45.909 Unspecified asthma, uncomplicated; G47.33 Obstructive sleep apnea (adult) (pediatric); M10.9 Gout, unspecified; K21.9 Gastro-esophageal reflux disease without esophagitis; N40.0 Benign prostatic hyperplasia without lower urinary tract symptoms; I12.9 Hypertensive chronic kidney disease with stage 1 through stage 4 chronic kidney disease, or unspecified chronic kidney disease; E11.22 Type 2 diabetes mellitus with diabetic chronic kidney disease; N18.30 Chronic kidney disease, stage 3 unspecified; F32.9 Major depressive disorder, single episode, unspecified; M19.90 Unspecified osteoarthritis, unspecified site; Z86.711 Personal history of pulmonary embolism; Z86.718 Personal history of other venous thrombosis and embolism; Z88.0 Allergy status to penicillin; Z88.8 Allergy status to other drugs, medicaments and biological substances; Z79.899 Other long term (current) drug therapy; Z79.01 Long term (current) use of anticoagulants; Z87.891 Personal history of nicotine dependence; Z98.890 Other specified postprocedural states
CPT/HCPCS: 36415; 51701; 70450; 80048; 80053; 81001; 82140; 82947; 83605; 84443; 85014; 85018; 85025; 87040; 87086; 87103; 92526; 92610; 93005; 93010; 94660; 94762; 96365-59; 96366-59; 97110; 97116; 97162; 97165; 97530; 97535; 99285-25; A9270; G0480; J0360; J1450; J7030; J7120

== ENCOUNTER 2021-02-11 13:09 | Inpatient (IN) | payer OTHER ==
[~2021-02-11] VITALS: Ht 180.3 cm; Wt 118.0 kg
[~2021-02-11 13:09] MED LIST changes: +FLUC200 PO
[2021-02-11] MEDS ORDERED: Seroquel Xr50 MG PO ×2 (13:49)
[2021-02-11] MEDS ORDERED: FINA5 PO (13:50)
[2021-02-11] MEDS ORDERED: BUME2 PO (13:50)
[2021-02-11] MEDS ORDERED: POTA10T PO (13:51)
[2021-02-11 13:56] LABS: BASOPHILS ABSOLUTE AUTO 0.08 K/mm3 (0.00-0.23); BASOPHILS PERCENT AUTO 1 % (0-2); EOSINOPHILS ABSOLUTE AUTO 0.06 K/mm3 (0.00-0.68); EOSINOPHILS PERCENT AUTO 0 % (0-6); Hematocrit 49.7 % (37.0-53.0); Hemoglobin 16.1 g/dL (13.5-17.5); IMMATURE GRAN ABSOLUTE AUTO 0.08 K/mm3 (0.00-0.10); IMMATURE GRAN PERCENT AUTO 1 % (0-1); LYMPHOCYTES PERCENT AUTO 9 % (21-46); MONOCYTES ABSOLUTE AUTO 0.71 K/mm3 (0.16-1.47); MONOCYTES PERCENT AUTO 5 % (4-13); Mean Corpuscular HGB 29.9 pg (26.0-34.0); Mean Corpuscular HGB Conc 32.4 g/dL (31.5-36.5); Mean Corpuscular Volume 92 fL (80-100); NEUTROPHILS ABSOLUTE AUTO 13.45 K/mm3 (1.96-9.15); NEUTROPHILS PERCENT AUTO 85 % (41-73); Platelet Count 207 K/mm3 (150-400); RDW Coefficient Variation 14.9 % (11.7-14.2); Red Blood Cell Count 5.39 M/mm3 (4.30-5.90); White Blood Cell Count 15.78 K/mm3 (4.00-11.30)
[2021-02-11 13:58] LABS: Albumin, Blood 3.2 g/dL (3.4-5.0); Albumin/Globulin Ratio 0.6 (0.8-1.8); Bilirubin, Total 0.8 mg/dL (0.1-1.0); Bun/Creatinine Ratio 13.6 (12.0-20.0); Calcium, Blood 9.6 mg/dL (8.5-10.1); Creatinine, Blood 1.54 mg/dL (0.60-1.20); Globulin, Blood 5.3 g/dL (2.2-4.0); Mean Platelet Volume 13.6 fL (9.1-12.4); Potassium, Blood 4.4 mmol/L (3.5-5.5); Total Protein, Blood 8.5 g/dL (6.4-8.2)
[2021-02-11 18:49] LABS: SARS-Cov-2 (COVID-19) PCR, MMC NEGATIVE (NEGATIVE)
--- NOTE | 2021-02-12 03:48 | NUR ---
DR RAMON CALLED REGARDING PT HR IN 130'S, T/O FOR TELE TO VERIFY AFIB. PT IS IN AFIB, T/O FOR 10 MG IV CARDIZEM. CARDIZEM GIVEN, PT HR NOW IN 90'S TELE MONITOR WILL NOTIFY RN IF PT HR EXCELARATES BACK TO 130'S AND PT WILL BE TX TO PCU FOR CARDIZEM DRIP.
--- NOTE | 2021-02-12 04:45 | NUR ---
PT HEART RATE AFIB JUMPING UP TO 130'S AGAIN, DR RAMON CALLED T/O TO TRANSFER TO PCU.
[2021-02-12 05:16] LABS: BASOPHILS ABSOLUTE AUTO 0.08 K/mm3 (0.00-0.23); BASOPHILS PERCENT AUTO 1 % (0-2); EOSINOPHILS ABSOLUTE AUTO 0.01 K/mm3 (0.00-0.68); EOSINOPHILS PERCENT AUTO 0 % (0-6); Hematocrit 50.7 % (37.0-53.0); Hemoglobin 16.1 g/dL (13.5-17.5); IMMATURE GRAN ABSOLUTE AUTO 0.07 K/mm3 (0.00-0.10); IMMATURE GRAN PERCENT AUTO 0 % (0-1); LYMPHOCYTES ABSOLUTE AUTO 1.18 K/mm3 (0.84-5.20); LYMPHOCYTES PERCENT AUTO 7 % (21-46); MONOCYTES ABSOLUTE AUTO 0.95 K/mm3 (0.16-1.47); MONOCYTES PERCENT AUTO 5 % (4-13); Mean Corpuscular HGB 29.3 pg (26.0-34.0); Mean Corpuscular HGB Conc 31.8 g/dL (31.5-36.5); Mean Corpuscular Volume 92 fL (80-100); Mean Platelet Volume 13.5 fL (9.1-12.4); NEUTROPHILS ABSOLUTE AUTO 15.23 K/mm3 (1.96-9.15); NEUTROPHILS PERCENT AUTO 87 % (41-73); Platelet Count 168 K/mm3 (150-400); RDW Coefficient Variation 14.9 % (11.7-14.2); RDW Standard Deviation 51.2 fL (35.1-46.3); White Blood Cell Count 17.52 K/mm3 (4.00-11.30)
[2021-02-12 05:41] LABS: Albumin, Blood 2.9 g/dL (3.4-5.0); Albumin/Globulin Ratio 0.5 (0.8-1.8); Bilirubin, Total 0.7 mg/dL (0.1-1.0); Bun/Creatinine Ratio 15.7 (12.0-20.0); Calcium, Blood 9.1 mg/dL (8.5-10.1); Creatinine, Blood 1.34 mg/dL (0.60-1.20); Globulin, Blood 5.4 g/dL (2.2-4.0); Potassium, Blood 3.6 mmol/L (3.5-5.5); Total Protein, Blood 8.3 g/dL (6.4-8.2)
--- NOTE | 2021-02-12 07:32 | NUR ---
INITIAL ASSESSMENT: PATIENT IS RESTING COMFORTABLY IN BED ON HIS LEFT SIDE, PT EASILY AWAKENS TO VERBAL STIMULI. PATIENT IS APHASIC AND IS ABLE TO ANSWER YES/NO QUESTIONS WITH A GOOD AMOUT OF TIME GIVEN. PT DENIES PAIN AT THIS TIME. HRR. LS DIM IN THE BASES. BIOX WNL ON RA. HR-A-FIB IN THE 90S. PER NOC RN REPORT PATIENT WAS TRANSFERRED DOWN FROM MEDICAL FLOOR FOR A CARDIZEM GTT, THIS IS NOT CURRENTLY RUNNING AND RATE HAS BEEN 90S- LOW 100S. BT+. PATIENT HAS LEFT SIDED WEAKNESS FROM HX OF CVA. PPP. NO EDEMA NOTED. VSS. PATIENTS ATTENDS CHANGED. CALL LIGHT IN REACH. BED ALARM ON FOR SAFETY. WILL CONTINUE TO MONITOR.
--- NOTE | 2021-02-12 08:15 | NUR ---
MALCOLM RN AT BEDSIDE PERFORMING ORAL CARE AND BED BATH WITH ELECTRIC LOCOMOTIVE FIRER/FIREMAN. RN NOTED A LARGE CAST, WE WERE ABLE TO REMOVE IT. PATIENT IS HAVING SOME PAIN WITH CONTINUED ORAL CARE, WILL CONTINUE TO PROVIDE ORAL CARE Q4 THROUGH OUT THE SHIFT. PATIENT DENIES NEEDS AT THIS TIME. WILL CONTINUE TO MONITOR.
--- NOTE | 2021-02-12 12:42 | NUR ---
SPEECH THERAPY HAS BEEN TO SEE THE PATIENT. PATIENT HAS BEEN CLEARED FOR ORAL INTAKE, MECH SOFT NECTAR THICK, NO MIXED CONSISTENCIES, NO STRAWS, MED CRUSHED IN APPLE SAUCE. VSS. AM MEDS GIVEN AT 11 AM, RATE IS CURRENTLY IN THE 70S-80S STILL A-FIB PATIENT HAS BEEN RESTING WITH EYES CLOSED. PATIENT DENIES NEEDS AT THIS TIME. PT/OT EVAL HAS BEEN ORDERED. WILL CONTINUE TO MONITOR.
--- NOTE | 2021-02-12 15:30 | NUR ---
Case conference done with MIA and RN prior to my visit to pt/family. Family conference held at request of RN and CM earlier. Femi at bedside and regular CG, who has assisted pt at [facility] apt present also. Plan was in place prior to this admit to move pt to [place] because care needs had grown beyond what pt's caregiver could provide by himself. Pt's care needs have now progressed beyond what [place] could provide. PT recommends josh lift for transfers and no manual transfer even with 3 person assist. Femi states pt's POLST supports comfort measures and they are interested in a higher level of care at [place] as pt is a . I passed on info from that no hospice beds availabel at [place] until mid February. We reviewed pt's progression of s/s over the past few weeks, recent admission, rapid decline in function, mobility and cognition. Femi would like pt's infection and pain treated. RN present for much of our conversation and she brought pt tylenol prn per eMAR. was on his way to meet with family also and additional pain medication requested in event tylenol was not helpful. Pt is frequently touching his left jaw/face, grimacing and frowning. He appears slightly anxious and is nonverbal. He was unable to respond to RN re: stating or confirming his birthday. CG reports some left sided facial droop and speech issues even before the left neck/jaw and facial area became sore and swollen. Femi acknowledges that even if pt had a CVA, treatment goals would be consistent with pt's POLST. Report given to MIA on my visit to pt/family and their requests, and visit to [facility] taking place currently.
--- NOTE | 2021-02-12 16:11 | NUR ---
DAUGHTER AND GENERAL STUDIES PROGRAM CHAIR AT BEDSIDE. PT RESTING WITH EYES CLOSED. MD DISCUSSING PLAN OF CARE WITH CAREGIVER AND DAUGHTER, ALSO DISCUSSING DISCHARGE PLAN. BED ALARM ON FOR SAFETY, WILL CONTINUE TO MONITOR.
--- NOTE | 2021-02-12 17:52 | NUR ---
PATIENT HAS DONE WELL TODAY. HE STARTED OUT THE SHIFT NPO, WAS CLEARED BY SPEECH THERAPY AND IS NOW ON A PUREE DIET. HE HAS HAD MINIMAL PO INTAKE TODAY BECAUSE HE HAS BEEN LETHARGIC AND NOT ABLE TO STAY AWAKE FOR MORE THAN 30 MINUTES. THERE WAS A LENGTHLY DISCUSSION WITH FAMILY AND THE PATIENTS CAREGIVER. THE DAUGHTER WANTS TO CONTINUE ANTIBIOTICS AND [facility] HOSPICE. NO ACUTE CHANGES THIS SHIFT, PATIENTS HEART RATE HAS REMAINED 70S-90S WITH PO MEDICATIONS, I DID NOT HAVE TO START THE CARDIZEM GTT. THE PATIENT WAS DOWNGRADED TO MEDICAL STATUS NO TELE. I WILL REPORT TO ONCOMING RN.
--- NOTE | 2021-02-12 20:08 | NUR ---
CARE ASSUMPTION PT A/O TO SELF, PLACE, AND FOLLOWING DIRECTIONS. PT WAS AWAKE AND SMILING WITH MINIMAL VERBAL COMMUNICATION. PT WAS ABLE TO RESPOND TO YES AND NO QUESTIONS. PT VSS. SPO2 >90% ON RA. WILL CONTINUE TO MONITOR AND PROVIDE CARE.
[2021-02-13 04:38] LABS: BASOPHILS ABSOLUTE AUTO 0.04 K/mm3 (0.00-0.23); BASOPHILS PERCENT AUTO 0 % (0-2); EOSINOPHILS ABSOLUTE AUTO 0.08 K/mm3 (0.00-0.68); EOSINOPHILS PERCENT AUTO 1 % (0-6); Hematocrit 44.5 % (37.0-53.0); Hemoglobin 14.3 g/dL (13.5-17.5); IMMATURE GRAN ABSOLUTE AUTO 0.06 K/mm3 (0.00-0.10); IMMATURE GRAN PERCENT AUTO 0 % (0-1); LYMPHOCYTES ABSOLUTE AUTO 1.58 K/mm3 (0.84-5.20); LYMPHOCYTES PERCENT AUTO 11 % (21-46); MONOCYTES ABSOLUTE AUTO 0.84 K/mm3 (0.16-1.47); MONOCYTES PERCENT AUTO 6 % (4-13); Mean Corpuscular HGB 29.6 pg (26.0-34.0); Mean Corpuscular HGB Conc 32.1 g/dL (31.5-36.5); Mean Corpuscular Volume 92 fL (80-100); NEUTROPHILS ABSOLUTE AUTO 12.38 K/mm3 (1.96-9.15); NEUTROPHILS PERCENT AUTO 83 % (41-73); Platelet Count 147 K/mm3 (150-400); RDW Coefficient Variation 14.8 % (11.7-14.2); RDW Standard Deviation 50.7 fL (35.1-46.3); Red Blood Cell Count 4.83 M/mm3 (4.30-5.90); White Blood Cell Count 14.98 K/mm3 (4.00-11.30)
[2021-02-13 04:39] LABS: Mean Platelet Volume 13.6 fL (9.1-12.4)
[2021-02-13 04:59] LABS: Bun/Creatinine Ratio 14.8 (12.0-20.0); Calcium, Blood 8.6 mg/dL (8.5-10.1); Creatinine, Blood 1.42 mg/dL (0.60-1.20); Potassium, Blood 3.6 mmol/L (3.5-5.5)
--- NOTE | 2021-02-13 06:08 | NUR ---
SHIFT SUMMARY PT A/O TO SELF, PLACE, AND FOLLOWING SOME DIRECTIONS. PT IS CONFUSED AT TIMES. PT PULLED OUT HIS IV AND PROVIDED WITH DISTRACTION TO MINIMIZE PULLING AT THE IV. PT HAS NEW IV ACCESS ON THE RIGHT FOREAM WITH A 20G ACCESS. PT HAS MINIMAL VERBAL COMMUNICATION. ORAL CARE PROVIDED TO PATIENT WHEN HE WAS AWAKE AND REQUIRED TWO PEOPLE. IT REQUIRED THREE PEOPLE TO REPOSTION AND CHANGE. PT IS NONE COMPLIANT WITH CPAP AT NIGHT. SPO2 >90% ON RA. VSS. TELE SR 90S. NO ACUTE CHANGES DURING THIS SHIFT. WILL CONTINUE TO MONITOR AND PROVIDE CARE UNTIL HANG OFF WITH DAY SHIFT.
--- NOTE | 2021-02-13 10:22 | NUR ---
UPDATE PHYSICIAN NOTIFIED PT IS UNABLE TO TOLERATE CRUSHED MEDICATIONS AT THIS TIME. ORDERS TO PROVIDE LOVENOX AT 1MG/KG IF PT UNABLE TO TAKE PO BLOOD THINNER FOR AFIB THIS AFTERNOON. SUPPOSITORY AND ENEMA ORDERED PER PHYSICIAN D/T NO BOWEL MOVEMENT FOR 8 DAYS. WILL CONTINUE TO MONITOR .
--- NOTE | 2021-02-13 18:11 | NUR ---
SHIFT SUMMARY PT ALERT AND ORIENTED TO SELF. PT LETHARGIC AT TIMES. HR STABLE. BP STABLE. NO CP OR PRESSURE. PT 3 PERSON ASSIST TO CHAIR. PT ABLE TO HAVE BM AFTER BOWEL CARE ORDERED. DT PT'S LETHARGY PO MEDICATIONS HELD AT TIMES. PHYSICIAN NOTIFIED. WILL GIVE PO MEDICATIONS WHEN PT ALERT. MEPLEX ON COCCYX. PT UP TO CHAIR AT THIS TIME. OXYGEN SATURATION MAINTAINED ABOVE 92% ON RA.TAB ALARM. WILL CONTINUE TO MONITOR UNTIL REPORT GIVEN TO NIGHTSHIFT RN.
--- NOTE | 2021-02-13 19:17 | NUR ---
UPDATE REPORT GIVEN TO ROOM 349 RN. PT TAKEN BY BED WITH BELONINGS TO ROOM 349 BY WIRE WEAVER HELPER.
--- NOTE | 2021-02-14 04:46 | NUR ---
MERCHANDISING SPECIALIST SUMMARY NO ACUTE CHANGES THIS SHIFT. PT TRANSFERED FROM PCU AT START OF SHIFT. PT NONVERBAL ASIDE FROM OCCASIONAL YES/NO ANSWERS. PT DENIES PAIN AND IS IN NO APPARENT DISTRESS. PT ABLE TO SAFELY TAKE HS MEDS CRUSHED IN APPLESAUCE. ATTENDS CHANGED NEEDED, INCONTINENT. VSS, WILL CONTINUE TO MONITOR.
[2021-02-14 05:22] LABS: BASOPHILS ABSOLUTE AUTO 0.06 K/mm3 (0.00-0.23); BASOPHILS PERCENT AUTO 1 % (0-2); EOSINOPHILS ABSOLUTE AUTO 0.17 K/mm3 (0.00-0.68); EOSINOPHILS PERCENT AUTO 2 % (0-6); Hematocrit 43.4 % (37.0-53.0); IMMATURE GRAN ABSOLUTE AUTO 0.04 K/mm3 (0.00-0.10); IMMATURE GRAN PERCENT AUTO 0 % (0-1); LYMPHOCYTES ABSOLUTE AUTO 1.73 K/mm3 (0.84-5.20); LYMPHOCYTES PERCENT AUTO 16 % (21-46); MONOCYTES ABSOLUTE AUTO 0.87 K/mm3 (0.16-1.47); MONOCYTES PERCENT AUTO 8 % (4-13); Mean Corpuscular HGB 29.5 pg (26.0-34.0); Mean Corpuscular HGB Conc 32.3 g/dL (31.5-36.5); Mean Corpuscular Volume 92 fL (80-100); NEUTROPHILS ABSOLUTE AUTO 8.28 K/mm3 (1.96-9.15); NEUTROPHILS PERCENT AUTO 74 % (41-73); Platelet Count 135 K/mm3 (150-400); RDW Coefficient Variation 14.7 % (11.7-14.2); RDW Standard Deviation 49.6 fL (35.1-46.3); Red Blood Cell Count 4.74 M/mm3 (4.30-5.90); White Blood Cell Count 11.15 K/mm3 (4.00-11.30)
[2021-02-14 05:26] LABS: Mean Platelet Volume 13.7 fL (9.1-12.4)
[2021-02-14 06:02] LABS: Albumin, Blood 2.4 g/dL (3.4-5.0); Albumin/Globulin Ratio 0.5 (0.8-1.8); Bilirubin, Total 0.5 mg/dL (0.1-1.0); Bun/Creatinine Ratio 13.6 (12.0-20.0); Calcium, Blood 8.3 mg/dL (8.5-10.1); Creatinine, Blood 1.25 mg/dL (0.60-1.20); Globulin, Blood 4.4 g/dL (2.2-4.0); Magnesium, Blood 1.7 mg/dL (1.6-2.4); Potassium, Blood 3.2 mmol/L (3.5-5.5); Thyroid Stimulating Hormone 1.34 uIU/mL (0.360-4.800); Total Protein, Blood 6.8 g/dL (6.4-8.2)
[2021-02-14] MEDS ORDERED: BISA10S PR (10:29)
[2021-02-14] MEDS ORDERED: Acetaminophen325 M1 PO (10:29)
[2021-02-14] MEDS ORDERED: DOCU100 PO (10:29)
[2021-02-14] MEDS ORDERED: NYSTATIN15 GM TOP (10:45)
[2021-02-14] MEDS ORDERED: LEVFLO500 PO (10:45)
[2021-02-14] MEDS ORDERED: MORP15ER PO (10:45)
[2021-02-14] MEDS ORDERED: FAMO20 PO (10:45)
[2021-02-14] MEDS ORDERED: SENN187 PO (10:46)
[2021-02-14] MEDS ORDERED: ONDA4ODT MM (10:46)
[2021-02-14] MEDS ORDERED: METR500 PO (10:46)
[2021-02-14 11:02] LABS: SARS-Cov-2 (COVID-19) PCR, MMC NEGATIVE (NEGATIVE)
--- NOTE | 2021-02-14 12:42 | NUR ---
DISCHARGE PT DISCHARGED TO [facility] ON HOSPICE. PT TRANSFERRED VIA GURNEY. IV REMOVED WITHOUT DIFFICULTY. REPORT GIVEN TO NOC RN, DEE. BELONGINGS WITH PT.
== END 2021-02-14 12:29 | disposition hospice, home (50) | DRG 155 ==
LOC: ER 13:09 → PCU 16:10 → MEDS 16:10 → ER 17:29 → MEDS 17:35 → PCU 02-12 05:14 → MEDS 02-13 19:07
PROVIDERS: Emergency Medicine; ADMIT Family Medicine
DX: K11.21 Acute sialoadenitis (principal); J96.10 Chronic respiratory failure, unspecified whether with hypoxia or hypercapnia; Z68.41 Body mass index [BMI] 40.0-44.9, adult; Z20.822 Contact with and (suspected) exposure to COVID-19; R62.7 Adult failure to thrive; F03.90 Unspecified dementia, unspecified severity, without behavioral disturbance, psychotic disturbance, mood disturbance, and anxiety; I12.9 Hypertensive chronic kidney disease with stage 1 through stage 4 chronic kidney disease, or unspecified chronic kidney disease; E11.22 Type 2 diabetes mellitus with diabetic chronic kidney disease; N18.30 Chronic kidney disease, stage 3 unspecified; J44.9 Chronic obstructive pulmonary disease, unspecified; G47.33 Obstructive sleep apnea (adult) (pediatric); Z51.5 Encounter for palliative care; M10.9 Gout, unspecified; K21.9 Gastro-esophageal reflux disease without esophagitis; M19.90 Unspecified osteoarthritis, unspecified site; E66.9 Obesity, unspecified; I48.91 Unspecified atrial fibrillation; R00.0 Tachycardia, unspecified; Z74.09 Other reduced mobility; Z66 Do not resuscitate; Z91.19 Patient's noncompliance with other medical treatment and regimen; Z79.899 Other long term (current) drug therapy; Z79.01 Long term (current) use of anticoagulants; Z87.891 Personal history of nicotine dependence; Z86.718 Personal history of other venous thrombosis and embolism; Z86.711 Personal history of pulmonary embolism; Z88.0 Allergy status to penicillin; Z88.8 Allergy status to other drugs, medicaments and biological substances
CPT/HCPCS: 36415; 70450; 70486; 71045; 80048; 80053; 82947; 83605; 83735; 84100; 84145; 84443; 85025; 92526; 92610; 97161; 97166; 97530; 99285-25; A9270; J0295; J0360; J1650; J1815; J1956; J7030; J7042; U0004